=== PATIENT | female | born 1945 | race Caucasian/White ===

== ENCOUNTER 2018-04-21 19:20 | Inpatient (IN) ==
--- NOTE | 2018-04-21 19:25 | Emergency Department Note ---
Disposition Clinical Impression: Confusion Dementia Qualifiers: Dementia type: unspecified type Dementia behavioral disturbance: without behavioral disturbance Qualified Code(s): F03.90 - Unspecified dementia without behavioral disturbance Urinary tract infection Qualifiers: Urinary tract infection type: acute cystitis Hematuria presence: with hematuria Qualified Code(s): N30.01 - Acute cystitis with hematuria Disposition: Admitted As Inpatient Condition: Good Referrals: Gege Almaraz, [employer] [Advanced Practice Nurse] - Forms: ED Satisfaction Letter, Work/School Release General Adult HPI - General Chief complaint: ED General Medical Stated complaint: General Medical Time Seen by Provider: 04/21/18 19:22 Source: patient, EMS Mode of arrival: EMS Limitations: no limitations, age Nursing Notes Reviewed: Yes Vital Signs Reviewed: Yes - History of Present Illness HPI Narrative: Patient arrives by EMS with report port of having an anxiety or panic attack. Patient states she has those but she feels somewhat better now. She also feels somewhat better or getting out of of the home she was in because she reports a lot of cigarette smoke in the house. She has had medication for anxiety but she is reportedly out of it. Her daughter talked to the EMS outside and advised that the patient has been living with them since October and the cannot manage her care any more. Patient therefore "packed her bags for a few days". The patient denies any type of headache or visual changes. She denies visual or auditory hallucination. She denies chest pain or shortness breath or abdominal pain. She states she did feel congested somewhat short of breath with the cigarette smoke in the house. She denies abdominal pain, nausea, vomiting or diarrhea. She denies a urinary troubles but volunteers "I wear attends". She denies any extremity swelling or joint pains. She has not had recent fall or injury. She indicates she is feeling well at her time of arrival. It was reported by EMS that she would usually get around with a walker but she has not had one available since October because "it is in storage ". EMS did perform an Accu-Chek of 104 as her vital signs were stable with a blood pressure 130/80. The patient was cooperative for transport and on arrival to this emergency department. - Related Data Home Medications Medication Instructions Recorded Confirmed Aspirin [Adult Aspirin] 81 mg PO DAILY 04/21/18 04/21/18 Atorvastatin [Lipitor] 40 mg PO HS 04/21/18 04/21/18 Cyanocobalamin (Vitamin B-12) 2,500 mcg SL DAILY 04/21/18 04/21/18 [B-12] Donepezil HCl [Aricept] 5 mg PO HS 04/21/18 04/21/18 Metoprolol Tartrate [Lopressor] 25 mg PO DAILY 04/21/18 04/21/18 Omeprazole [PriLOSEC] 20 mg PO DAILY 04/21/18 04/21/18 Allergies Allergy/AdvReac Type Severity Reaction Status Date / Time No Known Allergies Allergy Verified 04/21/18 19:31 All systems ED: reviewed and negative except as stated. Past Medical History - Past Medical History Attestation: Yes The following information was validated with the patient. Source: patient, old records reviewed, nursing notes reviewed Medical history: Reports: diabetes (2), hyperlipidemia, hypertension, kidney stones, other (Alzheimer's) Surgical history: Reports: other (Partial right lung resection, benign tumor, nephrectomy, kidney stone extraction, colonoscopy) Psychiatric history: Reports: anxiety, panic disorder - Social History Smoking Status: Former smoker Alcohol use: Reports: none Drug use: Reports: none Physical Exam - General Limitations: no limitations, age General appearance: alert, in no apparent distress, anxious - Head Head exam: atraumatic, normocephalic, normal inspection - Eye Eye exam: Present: normal appearance, PERRL, EOMI. Absent: conjunctival injection - ENT ENT exam: normal exam, normal oropharynx, mucous membranes moist - Neck Neck exam: Present: normal inspection, full ROM, trachea midline - Chest Chest inspection: Present: normal inspection, symmetric chest wall rise - Respiratory Respiratory exam: Present: normal lung sounds bilaterally. Absent: respiratory distress, wheezes, prolonged expiratory phase - Cardiovascular Cardiovascular exam: Present: regular rate, normal rhythm, normal heart sounds. Absent: tachycardia - Abdominal Exam Abdominal exam: Present: soft, Non-Tender, normal bowel sounds. Absent: tenderness, distention, guarding, rebound, rigidity - Extremities Exam Extremities exam: Present: normal inspection, full ROM, normal capillary refill. Absent: tenderness, pedal edema, calf tenderness - Expanded Lower Extremity Exam Neurovascular/Tendon exam: Present: normal capillary refill. Absent: motor deficit, sensory deficit, tendon deficit Gait: not tested/not observed - Back Exam Back exam: Present: normal inspection, full ROM. Absent: tenderness, CVA tenderness (R), CVA tenderness (L), vertebral tenderness - Neurological Exam Neurological exam: Present: alert, CN II-XII intact. Absent: oriented X3 ( Oriented to person and place.), motor sensory deficit - Psychiatric Psychiatric exam: Present: normal affect, normal mood - Skin Skin exam: Present: warm, dry, intact, normal color. Absent: diaphoresis, pallor Course Course Narrative: Care has been discussed with Dr. Diaz. He is agreeable with observation is patient for continuous or treatment for UTI as well as evaluating the social situation. She will likely need placement to a detention. Verbal orders have been obtained for her observation period Vital Signs Temperature 99.1 F 04/21/18 19:22 Pulse Rate 69 04/21/18 19:22 Respiratory Rate 16 04/21/18 19:22 Blood Pressure 160/86 04/21/18 19:22 O2 Sat by Pulse Oximetry 98 04/21/18 19:22 Temperature 99.1 F 04/21/18 19:22 Pulse Rate 69 04/21/18 19:22 Respiratory Rate 16 04/21/18 19:22 Blood Pressure 160/86 04/21/18 19:22 O2 Sat by Pulse Oximetry 98 04/21/18 19:22 Oxygen Delivery Oxygen Delivery Room Air Medical Decision Making - Medical Records Medical records reviewed: Yes I reviewed the patient's medical records. - Lab Data Lab results reviewed: Yes I reviewed the patient's lab results. Result diagrams: 04/21/18 19:36 04/21/18 19:36 Lab Results 04/21/18 04/21/18 04/21/18 Range/Units 19:36 19:36 19:49 WBC 4.9 (4.3-11.1) K/mcL RBC 4.15 (3.82-4.97) M/mcL Hgb 12.5 (11.5-15.4) g/dL Hct 36.4 (35.3-44.9) % MCV 87.7 (83.0-100.0) fL MCH 30.1 (28.0-33.3) pg MCHC 34.3 (31.6-35.5) g/dL RDW 13.1 (11.5-14.5) % Plt Count 216 (140-400) K/mcL MPV 9.5 (9.4-12.4) fL Immature Gran % 0.4 (0-4) % Seg Neutrophils % 59.3 % Lymphocytes % 29.8 % Monocytes % 7.4 % Eosinophils % 2.7 % Basophils % 0.4 % Neutrophils # 2.9 (1.6-8.9) K/mcL Lymphocytes # 1.5 (0.6-4.6) K/mcL Monocytes # 0.4 (0.0-1.3) K/mcL Eosinophils # 0.1 (0.0-0.6) K/mcL Basophils # 0.0 (0.0-0.2) K/mcL Sodium 138 (136-145) mEq/L Potassium 4.0 (3.5-5.1) mEq/L Chloride 107 (98-107) mEq/L Carbon Dioxide 25 (23-29) mEq/L BUN 10 (8-23) mg/dL Creatinine 0.76 (0.60-1.20) mg/dL Est GFR ( Amer) > 60 (> 60) Est GFR (Non-Af Amer) > 60 (> 60) BUN/Creatinine Ratio 13 (6-26) Glucose 99 (70-105) mg/dL Calculated Osmolality 285 (280-300) Calcium 12.2 H (8.6-10.3) mg/dL Total Bilirubin 0.6 (0.3-1.0) mg/dL Direct Bilirubin 0.2 (0.0-0.2) mg/dL Indirect Bilirubin 0.4 (0.0-1.2) mg/dL AST 15 (13-39) Units/L ALT 11 (7-52) Units/L Alkaline Phosphatase 53 (34-104) Units/L Serum Total Protein 6.7 (6.4-8.9) g/dL Albumin 3.9 (3.5-5.7) g/dL Globulin 2.8 (2.4-3.5) g/dL Albumin/Globulin Ratio 1.4 (1.1-2.2) Urine Color Light Yellow (Yellow) Urine Clarity Clear (Clear) Urine pH 8.5 H (5.0-8.0) pH Units Ur Specific Lando 1.010 (1.010-1.025) Urine Protein Negative (Neg-Trace) mg/dL Urine Glucose (UA) Normal (Normal) mg/dL Urine Ketones Negative (Negative) mg/dL Urine Blood TRACE-INTACT H (Negative) Urine Nitrite Negative (Negative) Urine Bilirubin Negative (Negative) Urine Urobilinogen Normal (Normal) mg/dL Ur Leukocyte Esterase Trace H (Negative) Urine Microscopic RBC 50-100 H (0-3) per hpf Urine Microscopic WBC 5-15 H (0-3) per hpf Ur Squamous Epith Cells Few (None-Few) per lpf Calcium Oxalate Crystal Present Ur Culture Indicated? YES A (NO)
[2018-04-21 19:45] LABS: Basophils % 0.4 %; Eosinophils # 0.1 K/mcL (0.0-0.6); Eosinophils % 2.7 %; Hematocrit 36.4 % (35.3-44.9); Hemoglobin 12.5 g/dL (11.5-15.4); Immature Granulocytes % 0.4 % (0-4); Lymphocytes # 1.5 K/mcL (0.6-4.6); Lymphocytes % 29.8 %; Mean Corpuscular HGB Conc 34.3 g/dL (31.6-35.5); Mean Corpuscular Hemoglobin 30.1 pg (28.0-33.3); Mean Corpuscular Volume 87.7 fL (83.0-100.0); Mean Platelet Volume 9.5 fL (9.4-12.4); Monocytes # 0.4 K/mcL (0.0-1.3); Monocytes % 7.4 %; Neutrophils # 2.9 K/mcL (1.6-8.9); Platelet Count 216 K/mcL (140-400); Red Blood Count 4.15 M/mcL (3.82-4.97); Red Cell Distribution Width 13.1 % (11.5-14.5); Segmented Neutrophils % 59.3 %
[2018-04-21 20:04] LABS: Alanine Aminotransferase 11 Units/L (7-52); Albumin 3.9 g/dL (3.5-5.7); Albumin/Globulin Ratio 1.4 (1.1-2.2); Alkaline Phosphatase 53 Units/L (34-104); Aspartate Amino Transferase 15 Units/L (13-39); BUN/Creatinine Ratio 13 (6-26); Bilirubin,Direct 0.2 mg/dL (0.0-0.2); Bilirubin,Indirect 0.4 mg/dL (0.0-1.2); Bilirubin,Total 0.6 mg/dL (0.3-1.0); Blood Urea Nitrogen 10 mg/dL (8-23); Calcium 12.2 mg/dL (8.6-10.3); Carbon Dioxide 25 mEq/L (23-29); Chloride 107 mEq/L (98-107); Globulin 2.8 g/dL (2.4-3.5); Glucose 99 mg/dL (70-105); Osmolality,Calculated 285 (280-300); Sodium 138 mEq/L (136-145); Total Protein 6.7 g/dL (6.4-8.9); eGFR For African Americans > 60 (> 60); eGFR For Non-African Americans > 60 (> 60)
[2018-04-21 20:14] LABS: Color,Urine Light Yellow (Yellow)
[2018-04-21 20:15] LABS: Bilirubin,Urine Negative (Negative); Blood,Urine TRACE-INTACT (Negative); Clarity,Urine Clear (Clear); Glucose,Urine (UA) Normal (Normal); Ketones,Urine Negative (Negative); PH,Urine 8.5 pH Units (5.0-8.0)
[2018-04-21 20:16] LABS: Leukocyte Esterase,Urine Trace (Negative); Nitrite,Urine Negative (Negative); Protein,Urine Negative (Neg-Trace); Urobilinogen,Urine Normal (Normal)
[2018-04-21 20:17] LABS: Calcium Oxalate Crystals,Urine Present; RBC,Urine 50-100 per hpf (0-3); Squamous Epithelial Cell,Urine Few per lpf (None-Few)
[2018-04-21] MEDS ORDERED: cefTRIAXone 2,000 MG in 0.9 % Sodium Chloride Mini Bag 100 ML IVPB ONE (20:32)
[2018-04-21] MEDS ORDERED: 0.9 % Sodium Chloride 1,000 ML IVC SCH ×2 (20:45→22:48)
[2018-04-21] MEDS ORDERED: Dextrose Gel 15 GM/37.5 ML TUBE PO PRN ×2 (22:48)
[2018-04-21] MEDS ORDERED: Naloxone 0.4 MG/ML INJ IVP PRN (22:48)
[2018-04-21] MEDS ORDERED: D5% in Water 1,000 ML IVC PRN (22:48)
[2018-04-21] MEDS ORDERED: *HR* Dextrose 50 % in Water (Syg) 50 ML SYRINGE IVP PRN (22:48)
[2018-04-22] MEDS: Cyanocobalamin (B-12) 1,000 MCG TABLET PO SCH (08:44)
[2018-04-22] MEDS: cefTRIAXone 2,000 MG in 0.9 % Sodium Chloride Mini Bag 100 ML IVPB SCH (08:45)
[2018-04-22] MEDS: Aspirin Enteric Coated 81 MG Tablet PO SCH (08:45)
[2018-04-22] MEDS: Insulin LISPRO 300 UNITS/3 ML VIAL SQ SCH ×3 (08:46→17:09)
--- NOTE | 2018-04-22 11:33 | Internal Med History&Physical ---
Date of Encounter: 04/22/18 Time of Encounter: 10:55 Assessment and Plan (1) Hematuria Current visit: Yes Status: Acute We will order CT of abdomen and chest to further evaluate. Qualifiers: Hematuria type: unspecified type Qualified Code(s): R31.9 - Hematuria, unspecified (2) Hypercalcemia Current visit: Yes Status: Acute Will order PTH and CT of chest and abdomen to further evaluate. (3) DM type 2 (diabetes mellitus, type 2) Current visit: Yes Status: Chronic Will check hemoglobin A1c in a.m. Qualifiers: Diabetes mellitus chcf insulin use: without chcf use Diabetes mellitus complication status: without complication Qualified Code(s): E11.9 - Type 2 diabetes mellitus without complications (4) Hypertension Current visit: Yes Status: Chronic Continue Lopressor and monitor labs. Qualifiers: Hypertension type: essential hypertension Qualified Code(s): I10 - Essential (primary) hypertension (5) Anxiety and depression Current visit: Yes Status: Acute We will monitor without medication at this time. (6) GERD (gastroesophageal reflux disease) Current visit: Yes Status: Chronic Continue omeprazole. Qualifiers: Esophagitis presence: esophagitis presence not specified Qualified Code(s) : K21.9 - Gastro-esophageal reflux disease without esophagitis (7) Dementia Current visit: Yes Status: Chronic Presumed since on Aricept. Will order MMSE. Qualifiers: Dementia type: unspecified type Dementia behavioral disturbance: without behavioral disturbance Qualified Code(s): F03.90 - Unspecified dementia without behavioral disturbance (8) B12 deficiency Current visit: Yes Status: Acute Will order B12 level in a.m. Internal Medicine - H&P: HPI Chief complaint: Anxiety, weakness Admitted From: Emergency Dept Plans for Post Hospital Care: Home History of present illness: Ms. Ibarra is a 73 year old female who came to emergency room stating she felt she was having a panic attack at home. She is a challenging historian because of rambling conversation but seems to indicate that she was having a disagreement and/or frustration with her daughter whom she has lived with since October 2017. The squad was called and she was brought to emergency room and evaluated. She was found to have hematuria and hypercalcemia. She was admitted to [facility] floor for ongoing care needs. She denies significant pain or dyspnea at this time. She states she cannot go back and live with her daughter but does not specify details. Past Med Surg Social Fam HX - Past Medical History Medical history: diabetes, hyperlipidemia, hypertension, kidney stones, other Additional medical history: Alzheimers Psychiatric history: anxiety, panic disorder - Past Surgical History Surgical History: other Additional surgical history: Lung surgery, kidney removed - Social History Smoking Status: Former smoker Smokeless Tobacco Status: No Alcohol use: none Drug use: none Internal Medicine - H&P: Meds Aspirin [Adult Aspirin] 81 mg PO DAILY 04/21/18 [History] Atorvastatin [Lipitor] 40 mg PO HS 04/21/18 [History] Cyanocobalamin (Vitamin B-12) [B-12] 2,500 mcg SL DAILY 04/21/18 [History] Donepezil HCl [Aricept] 5 mg PO HS 04/21/18 [History] Metoprolol Tartrate [Lopressor] 25 mg PO DAILY 04/21/18 [History] Omeprazole [PriLOSEC] 20 mg PO DAILY 04/21/18 [History] 3 Allergy/AdvReac Type Severity Reaction Status Date / Time No Known Allergies Allergy Verified 04/21/18 19:31 All Systems PM: A 10-system review of systems was performed and is negative for pertinent findings except as documented above in the HPI. Review of systems: Gen.: She states her present weight is 112 although the measured weight on admission was approximately 150 pounds. She states her weight has been stable the past year. Cardiovascular: She has history of hypertension but denies MO heart failure angina DVT or pulmonary embolus. She reports feeling her heart beat rapidly when she is having anxiety Respiratory: She smoked for approximately age 9-35 up to 2-1/2 packs per day. She denies chronic lung disease and does not use home oxygen. She reports that [open ?] lung biopsy was done over 10 years ago in [place] to remove what was felt to be malignancy. She denies malignancy was actually found. GI: She denies disorders of her liver gallbladder or exocrine pancreas. She has GERD : She has had kidney stones in the past. She reports a right nephrectomy was done over 10 years ago but cannot clearly state the reason for this. She denies other kidney or bladder disorders Neurologic: She is on Aricept but was uncertain why she takes it. She is uncertain if she has had a stroke. She denies seizures. Endocrine: She reports being diagnosed with DM 2 approximately 20 years ago but does not take medication. She denies thyroid disease but has hyperlipidemia Hematology/oncology: She has been told she was B12 deficient and is on supplemental B12. She had left breast lumpectomy without malignancy found several years ago. She denies anemia or internal malignancies otherwise Psychiatric: She has anxiety and depression [place] skeletal: She has DJD but denies gout or other bone joint or muscle disorders. - Constitutional Vitals: Temp Pulse Resp BP Pulse Ox 97.7 F 59 14 126/62 95 04/22/18 10:59 04/22/18 10:59 04/22/18 10:59 04/22/18 10:59 04/22/18 10:59 Exam: Gen.: She is a well-developed well-nourished female resting comfortably in bed who appears in no acute distress HEENT: Head is atraumatic and normocephalic. Eyes: EOMI. There is no scleral icterus. Mouth: Mucosa is moist. Neck: Supple and nontender. There is no thyromegaly or adenopathy noted. Heart: Regular without murmurs gallops or ectopics Lungs: No wheezes or crackles are heard. Abdomen: Soft and nontender. No masses or guarding are noted. Extremities: There is no cyanosis edema or clubbing noted. Dorsalis pedis and posterior tibial pulses are trace to 1+ palpable bilaterally. She has minimal DJD changes of her hands. Neurologic: Mental status: She is talkative and seems to be a reliable historian. She is somewhat rambling in conversation at times. Cranial nerves: Smile is symmetric. Forehead wrinkles bilaterally. Tongue protrudes midline. EOMI. Motor: There is no pronator drift. There is no cogwheeling or rigidity on passive range of motion. She has a rhythmic tremor of her jaw at rest. Cerebellar: Finger to nose is intact bilaterally. Skin: Warm and dry Internal Med - H&P Results - Labs CBC & Chem 7: 04/21/18 19:36 04/21/18 19:36
[2018-04-23] MEDS ORDERED: *HR* Enoxaparin 40 MG/0.4 ML SYRINGE SQ SCH (06:00)
[2018-04-23] MEDS: Cyanocobalamin (B-12) 1,000 MCG TABLET PO SCH (07:59)
[2018-04-23] MEDS: Aspirin Enteric Coated 81 MG Tablet PO SCH (08:00)
[2018-04-23] MEDS: cefTRIAXone 2,000 MG in 0.9 % Sodium Chloride Mini Bag 100 ML IVPB SCH (08:01)
[2018-04-23] MEDS: Insulin LISPRO 300 UNITS/3 ML VIAL SQ SCH (08:18)
[2018-04-23 09:11] VITALS: BP 134/81
[2018-04-23] MEDS ORDERED: ALPRAZolam 0.25 MG TABLET PO PRN (10:20)
--- NOTE | 2018-04-23 10:21 | Discharge Summary ---
Date of Encounter: 04/23/18 Time of Encounter: 10:10 - Discharge Diagnosis (1) Mass of upper lobe of right lung Priority: Primary Status: Acute (2) Hypercalcemia Priority: Secondary Status: Acute (3) Hematuria Priority: Secondary Status: Acute Qualifiers: Hematuria type: unspecified type Qualified Code(s): R31.9 - Hematuria, unspecified (4) DM type 2 (diabetes mellitus, type 2) Priority: Secondary Status: Chronic Qualifiers: Diabetes mellitus oil heaterman insulin use: without oil heaterman use Diabetes mellitus complication status: without complication Qualified Code(s): E11.9 - Type 2 diabetes mellitus without complications (5) Hypertension Priority: Secondary Status: Chronic Qualifiers: Hypertension type: essential hypertension Qualified Code(s): I10 - Essential (primary) hypertension (6) Anxiety and depression Priority: Secondary Status: Chronic (7) GERD (gastroesophageal reflux disease) Priority: Secondary Status: Chronic Qualifiers: Esophagitis presence: esophagitis presence not specified Qualified Code(s) : K21.9 - Gastro-esophageal reflux disease without esophagitis (8) Dementia Priority: Secondary Status: Chronic Qualifiers: Dementia type: unspecified type Dementia behavioral disturbance: without behavioral disturbance Qualified Code(s): F03.90 - Unspecified dementia without behavioral disturbance (9) B12 deficiency Priority: Secondary Status: Chronic Hospital course: Ms. Ibarra is a 73 year old female who came to emergency room stating she felt she was having a panic attack at home. She is a challenging historian because of rambling conversation but seems to indicate that she was having a disagreement and/or frustration with her daughter whom she has lived with since October 2017. The squad was called and she was brought to emergency room and evaluated. She was found to have hematuria and hypercalcemia. She was admitted to [facility] for ongoing care needs. Initial orders were written by the emergency room physician. I saw her on April 22 and performed the history and physical. CT of chest abdomen pelvis was done to further evaluate hypercalcemia with history of lung mass. The chest CT showed a 2 cm lobular lesion in the right apex having the appearance of bronchogenic carcinoma. There was an indeterminate sub-6 mm right lower lobe subpleural pulmonary nodule. I discussed with her the findings of the CT scan. She wished to be transferred to [facility] for further workup and treatment. - Time Spent with Patient Total time spent providing and/or coordinating discharge services: - Discharge Medications Home Medications: Aspirin [Adult Aspirin] 81 mg PO DAILY 04/21/18 [History] Atorvastatin [Lipitor] 40 mg PO HS 04/21/18 [History] Cyanocobalamin (Vitamin B-12) [B-12] 2,500 mcg SL DAILY 04/21/18 [History] Donepezil HCl [Aricept] 5 mg PO HS 04/21/18 [History] Metoprolol Tartrate [Lopressor] 25 mg PO DAILY 04/21/18 [History] Omeprazole [PriLOSEC] 20 mg PO DAILY 04/21/18 [History] Allergies/Adverse Reactions: 3 Allergy/AdvReac Type Severity Reaction Status Date / Time No Known Allergies Allergy Verified 04/21/18 19:31 Date of admission: 04/22/18 18:32 Primary care physician: Gege Almaraz DOUGH [employer]ER - Constitutional Vitals: Temp Pulse Resp BP Pulse Ox 98.6 F 75 16 134/81 97 04/23/18 09:08 04/23/18 09:08 04/23/18 09:08 04/23/18 09:08 04/23/18 09:08 - Patient Status Disposition: Transfer Other Condition: Good - Discharge Instructions
[2018-04-23 11:21] LABS: Estimated Average Glucose 114 mg/dl; Hemoglobin A1C 5.6 %
== END 2018-04-23 13:25 | disposition other institution (70) | DRG 690 ==
LOC: EMEROOPIK 19:20 → INPPIK 19:20
PROVIDERS: ADMIT Internal Medicine; ATTEND Internal Medicine

== ENCOUNTER 2019-05-11 08:52 | Observation (INO) ==
[2019-05-11] MEDS ORDERED: 0.9 % Sodium Chloride 1,000 ML IVC ONE (09:00)
--- NOTE | 2019-05-11 09:00 | Emergency Department Note ---
Disposition Clinical Impression: Dehydration, Pancytopenia, DESIRAE (acute kidney injury), UTI (urinary tract infection), Hypokalemia, Hypomagnesemia Disposition: Admitted As Inpatient Condition: Good Referrals: Gege Almaraz CNP [Primary Care Provider] - Forms: ED Satisfaction Letter Time of Disposition: : Nausea/Vomiting/Diarrhea HPI - General Chief complaint: ED Nausea/Vomiting/Diarrhea Stated complaint: Diarrhea & weakness few days Time Seen by Provider: 05/11/19 08:58 Source: patient, EMS Mode of arrival: EMS Limitations: no limitations Nursing Notes Reviewed: Yes Vital Signs Reviewed: Yes - History of Present Illness HPI Narrative: 74-year-old female who presents today with weakness with gotten worse and last couple of days. She states she had diarrhea earlier in the week. They prescribed her some medicine but she did not take it. She states her last bout of diarrhea was 3 days ago. She is not having any pain at this time. The caregiver who arrives with her states that she is stopped eating over the last couple of weeks and they have noticed that really she had a decline in weight since that time. They did not know that she was given a call the ambulance they did not anticipate that but that she was notified afterwards that she is are not he called the ambulance for weakness. Patient expresses some distress satisfaction with the current nursing situation at her house. She does not feel comfortable there and she does not like her nurses and she has fired most of them. She has nursing support once a week now. She does get Meals on Wheels according to the social psychologist but there is no went to make sure that she does eat and they feel that she probably is a eating. She had lung cancer approxi mately one year ago. Patient reports she only has one kidney. Pt Subjective Complaint: diarrhea Onset (ago): day(s) (3) - Related Data Home Medications Medication Instructions Recorded Confirmed Cyanocobalamin (Vitamin B-12) 50,000 mcg SL QWEEK 04/21/18 05/11/19 [B-12] Donepezil HCl [Aricept] 5 mg PO HS 04/21/18 05/11/19 Ondansetron ODT [Zofran ODT] 4 mg SL Q6H PRN 05/08/18 05/11/19 ARIPiprazole [Abilify] 5 mg PO DAILY 02/26/19 05/11/19 Aspirin Enteric Coated [Aspirin EC] 81 mg PO DAILY 02/26/19 05/11/19 Atorvastatin Calcium [Lipitor] 20 mg PO DAILY 02/26/19 05/11/19 Cinacalcet [Sensipar] 30 mg PO BID 02/26/19 05/11/19 Ergocalciferol (VITAMIN D2) 50,000 unit PO QWEEK 02/26/19 05/11/19 [Vitamin D2] Metoprolol [Lopressor] 25 mg PO DAILY 02/26/19 05/11/19 Montelukast [Singulair] 10 mg PO DAILY 02/26/19 05/11/19 Nitroglycerin [Nitrostat] 0.4 mg SL AD PRN 02/26/19 05/11/19 clonazePAM [Clonazepam] 2 mg PO QPM 02/26/19 05/11/19 clonazePAM [Klonopin] 1 mg PO QAM 02/26/19 05/11/19 Previous Rx's Medication Instructions Recorded Sennosides/Docusate Sodium [Senna 2 each PO BID PRN #60 tablet 05/13/18 Plus] Omeprazole [PriLOSEC] 20 mg PO BID #60 capsule. 03/01/19 Sucralfate [Carafate] 1 gm PO QIDAC #120 tablet 03/01/19 Allergies Allergy/AdvReac Type Severity Reaction Status Date / Time No Known Allergies Allergy Verified 02/26/19 22:50 Review of Systems: All other systems are negative except as noted/marked Chart generated with voice recognition software Nursing notes reviewed Old records reviewed Past Medical History - Past Medical History Attestation: Yes The following information was validated with the patient. Source: patient, old records reviewed, nursing notes reviewed, other (social psychologist) Medical history: Reports: diabetes, hyperlipidemia, hypertension, kidney stones, other Surgical history: Reports: other Psychiatric history: Reports: anxiety, panic disorder - Social History Smoking Status: Former smoker Smokeless Tobacco Status: No Alcohol use: Reports: none Drug use: Reports: none Physical Exam General: NAD, VSS central tremor cachectic Head: normocephalic, atraumatic Eyes: EOMI, PERRLA mouth: Dry mucous membranes Neck: NO CLA, Supple Chest wall: normal rise, no crepitus, no deformity noted Lungs: moving air well, no distress Heart: RRR, no murmur Abd: soft, nontender, BS normal : deferred MSK: strength equal in all four extremities Ext: moves all four extremities, no obvious deformities Skin: cap refill normal, warm, dry neuro : CN2-12 grossly intact, A&Ox3 Psych: normal affect, not anxious Course Vital Signs Temperature 98.3 F 05/11/19 08:54 Pulse Rate 84 05/11/19 08:54 Respiratory Rate 16 05/11/19 08:54 Blood Pressure 111/70 05/11/19 08:54 O2 Sat by Pulse Oximetry 96 05/11/19 08:54 Temperature 98.3 F 05/11/19 08:54 Pulse Rate 83 05/11/19 10:01 Respiratory Rate 16 05/11/19 10:01 Blood Pressure 124/60 05/11/19 10:01 O2 Sat by Pulse Oximetry 97 05/11/19 10:01 Oxygen Delivery Oxygen Delivery Room Air Nausea/Vomiting/Diarrhea - [facility] Narrative Medical decision making narrative: 74 yo F who presents today with generalized weakness for couple of days. She has a urinary tract infection and acute kidney injury. She will has one kidney so slight bump in her creatinine is worrisome. I started on IV fluids started I ordered a Rocephin push for her. Her potassium magnesium are low as well I have ordered replacement for those. She is slightly pancytopenic although it is mild for this would need to be followed. It appears that she is probably been anemic for a while and she has had a low white count for a while. Patient is comfortable staying in the hospital at this time. She has had no distress that she has been here. She is very orthostatic on arrival is an ear. After she has been hydrated. Her boluses going and somewhat slowly think secondary to positioning of the IV and her not keeping her arm straight. She has no questions when I discussed the fact that she would not stay in the hospital. She is worried about disposition planning as she does not feel very comfortable going home at this point. I told her to dress this with the admitting physician and the social media manager team. - Medical Records Medical records reviewed: Yes I reviewed the patient's medical records. - Lab Data Lab results reviewed: Yes I reviewed the patient's lab results. Result diagrams: 05/11/19 09:09 05/11/19 09:09 Lab Results 05/11/19 05/11/19 05/11/19 Range/Units 09:09 09:09 09:09 WBC 3.2 L (4.3-11.1) K/mcL RBC 3.76 L (3.82-4.97) M/mcL Hgb 11.2 L (11.5-15.4) g/dL Hct 33.3 L (35.3-44.9) % MCV 88.6 (83.0-100.0) fL MCH 29.8 (28.0-33.3) pg MCHC 33.6 (31.6-35.5) g/dL RDW 12.6 (11.5-14.5) % Plt Count 125 L (140-400) K/mcL MPV 9.6 (9.4-12.4) fL Immature Gran % 0.3 (0-4) % Seg Neutrophils % 75.2 % Lymphocytes % 15.4 % Monocytes % 7.5 % Eosinophils % 1.3 % Basophils % 0.3 % Neutrophils # 2.4 (1.6-8.9) K/mcL Lymphocytes # 0.5 L (0.6-4.6) K/mcL Monocytes # 0.2 (0.0-1.3) K/mcL Eosinophils # 0.0 (0.0-0.6) K/mcL Basophils # 0.0 (0.0-0.2) K/mcL PT 12.1 (9.4-12.1) Seconds INR 1.1 Sodium 144 (136-145) mEq/L Potassium 3.2 L (3.5-5.1) mEq/L Chloride 106 (98-107) mEq/L Carbon Dioxide 29 (23-29) mEq/L BUN 13 (8-23) mg/dL Creatinine 1.23 H (0.60-1.20) mg/dL Est GFR ( Amer) 51 L (> 60) Est GFR (Non-Af Amer) 42 L (> 60) BUN/Creatinine Ratio 11 (6-26) Glucose 111 H (70-105) mg/dL Calculated Osmolality 299 (280-300) Calcium 11.4 H (8.6-10.3) mg/dL Magnesium 1.3 L (1.6-2.6) mg/dL Total Bilirubin 0.4 (0.3-1.0) mg/dL AST 14 (13-39) Units/L ALT 6 L (7-52) Units/L Alkaline Phosphatase 42 (34-104) Units/L Creatine Kinase 18 L (30-223) Units/L Troponin I < 0.03 (< 0.04) ng/mL Serum Total Protein 6.1 L (6.4-8.9) g/dL Albumin 3.9 (3.5-5.7) g/dL Globulin 2.2 L (2.4-3.5) g/dL Albumin/Globulin Ratio 1.8 (1.1-2.2) TSH 1.209 (0.340-5.600) mcIU/mL Urine Color (Yellow) Urine Clarity (Clear) Urine pH (5.0-8.0) pH Units Ur Specific [place] (1.010-1.025) Urine Protein (Neg-Trace) mg/dL Urine Glucose (UA) (Normal) mg/dL Urine Ketones (Negative) mg/dL Urine Blood (Negative) Urine Nitrite (Negative) Urine Bilirubin (Negative) Urine Urobilinogen (Normal) mg/dL Ur Leukocyte Esterase (Negative) 05/11/19 Range/Units 09:58 WBC (4.3-11.1) K/mcL RBC (3.82-4.97) M/mcL Hgb (11.5-15.4) g/dL Hct (35.3-44.9) % MCV (83.0-100.0) fL MCH (28.0-33.3) pg MCHC (31.6-35.5) g/dL RDW (11.5-14.5) % Plt Count (140-400) K/mcL MPV (9.4-12.4) fL Immature Gran % (0-4) % Seg Neutrophils % % Lymphocytes % % Monocytes % % Eosinophils % % Basophils % % Neutrophils # (1.6-8.9) K/mcL Lymphocytes # (0.6-4.6) K/mcL Monocytes # (0.0-1.3) K/mcL Eosinophils # (0.0-0.6) K/mcL Basophils # (0.0-0.2) K/mcL PT (9.4-12.1) Seconds INR Sodium (136-145) mEq/L Potassium (3.5-5.1) mEq/L Chloride (98-107) mEq/L Carbon Dioxide (23-29) mEq/L BUN (8-23) mg/dL Creatinine (0.60-1.20) mg/dL Est GFR ( Amer) (> 60) Est GFR (Non-Af Amer) (> 60) BUN/Creatinine Ratio (6-26) Glucose (70-105) mg/dL Calculated Osmolality (280-300) Calcium (8.6-10.3) mg/dL Magnesium (1.6-2.6) mg/dL Total Bilirubin (0.3-1.0) mg/dL AST (13-39) Units/L ALT (7-52) Units/L Alkaline Phosphatase (34-104) Units/L Creatine Kinase (30-223) Units/L Troponin I (< 0.04) ng/mL Serum Total Protein (6.4-8.9) g/dL Albumin (3.5-5.7) g/dL Globulin (2.4-3.5) g/dL Albumin/Globulin Ratio (1.1-2.2) TSH (0.340-5.600) mcIU/mL Urine Color Yellow (Yellow) Urine Clarity Slightly Cloudy A (Clear) Urine pH 6.5 (5.0-8.0) pH Units Ur Specific [place] 1.020 (1.010-1.025) Urine Protein Trace (Neg-Trace) mg/dL Urine Glucose (UA) Normal (Normal) mg/dL Urine Ketones 40 H (Negative) mg/dL Urine Blood Trace-lysed H (Negative) Urine Nitrite Negative (Negative) Urine Bilirubin Small H (Negative) Urine Urobilinogen Normal (Normal) mg/dL Ur Leukocyte Esterase Small H (Negative) - Radiology Data Radiology results reviewed: Yes I reviewed the patient's radiology results. EXAMINATION: CT OF THE HEAD WITHOUT CONTRAST 05/11/2019 9:34 am TECHNIQUE: CT of the head was performed without the administration of intravenous contrast. Dose modulation, iterative reconstruction, and/or weight based adjustment of the mA/kV was utilized to reduce the radiation dose to as low as reasonably achievable. COMPARISON: None. HISTORY: ORDERING SYSTEM PROVIDED HISTORY: weakness Weakness and diarrhea today. Acute symptoms. History of Alzheimer's disease. Initial examination. FINDINGS: BRAIN/VENTRICLES: There is no acute intracranial hemorrhage, mass effect or midline shift. No abnormal extra-axial fluid collection. The dacosta-white differentiation is maintained without evidence of an acute infarct. There is no evidence of hydrocephalus. There is generalized cerebral atrophy. Mild low-attenuation changes in the periventricular white matter are compatible with chronic microvascular ischemic related gliosis. There is an old tiny right frontal lobe infarct. ORBITS: The visualized portion of the orbits demonstrate no acute abnormality. SINUSES: The visualized paranasal sinuses and mastoid air cells demonstrate no acute abnormality. SOFT TISSUES/SKULL: No acute abnormality of the visualized skull or soft tissues. CT/CT head/brain wo con IMPRESSION: No acute intracranial abnormality. D/ / Jose Nelson MD / Jose Nelson MD Interpreting Provider: Jose Nelson MD N: ONE XRAY VIEW OF THE CHEST 05/11/2019 9:34 am COMPARISON: 02/26/2019, 04/22/2018 HISTORY: ORDERING SYSTEM PROVIDED HISTORY: weakness, hx of lung ca FINDINGS: Emphysematous changes. Trace pleural effusions are suspected. Ill-defined nodular densities along the left apex. Heart size is within normal limits. Aortic atherosclerosis. XR/XR chest 1V portable IMPRESSION: 1. Suspected trace bilateral pleural effusions. 2. Ill-defined nodular densities along the right apex are stable from the most recent prior exam. D/ / Domingo May MD / Domingo May MD Interpreting Provider: Domingo May MD - EKG Data EKG attestation: Yes I reviewed and interpreted this EKG. EKG results narrative: EKG interpreted by myself as sinus rhythm with rate of 80 a QTC of [address] elevation
[2019-05-11 09:17] LABS: Basophils % 0.3 %; Eosinophils % 1.3 %; Hematocrit 33.3 % (35.3-44.9); Hemoglobin 11.2 g/dL (11.5-15.4); Immature Granulocytes % 0.3 % (0-4); Lymphocytes # 0.5 K/mcL (0.6-4.6); Lymphocytes % 15.4 %; Mean Corpuscular HGB Conc 33.6 g/dL (31.6-35.5); Mean Corpuscular Hemoglobin 29.8 pg (28.0-33.3); Mean Corpuscular Volume 88.6 fL (83.0-100.0); Mean Platelet Volume 9.6 fL (9.4-12.4); Monocytes # 0.2 K/mcL (0.0-1.3); Monocytes % 7.5 %; Neutrophils # 2.4 K/mcL (1.6-8.9); Platelet Count 125 K/mcL (140-400); Red Blood Count 3.76 M/mcL (3.82-4.97); Red Cell Distribution Width 12.6 % (11.5-14.5); Segmented Neutrophils % 75.2 %; White Blood Count 3.2 K/mcL (4.3-11.1)
[2019-05-11 09:26] LABS: INR 1.1; Prothrombin Time 12.1 Seconds (9.4-12.1)
[2019-05-11 09:39] LABS: Alanine Aminotransferase 6 Units/L (7-52); Albumin 3.9 g/dL (3.5-5.7); Albumin/Globulin Ratio 1.8 (1.1-2.2); Alkaline Phosphatase 42 Units/L (34-104); Aspartate Amino Transferase 14 Units/L (13-39); BUN/Creatinine Ratio 11 (6-26); Bilirubin,Total 0.4 mg/dL (0.3-1.0); Blood Urea Nitrogen 13 mg/dL (8-23); Calcium 11.4 mg/dL (8.6-10.3); Carbon Dioxide 29 mEq/L (23-29); Chloride 106 mEq/L (98-107); Creatine Kinase 18 Units/L (30-223); Globulin 2.2 g/dL (2.4-3.5); Glucose 111 mg/dL (70-105); Magnesium 1.3 mg/dL (1.6-2.6); Osmolality,Calculated 299 (280-300); Potassium 3.2 mEq/L (3.5-5.1); Sodium 144 mEq/L (136-145); Total Protein 6.1 g/dL (6.4-8.9); Troponin I < 0.03 ng/mL (< 0.04); eGFR For African Americans 51 (> 60); eGFR For Non-African Americans 42 (> 60)
[2019-05-11 09:50] LABS: Thyroid Stimulating Hormone 1.209 mcIU/mL (0.340-5.600)
[2019-05-11 10:06] LABS: Bilirubin,Urine Small (Negative); Blood,Urine Trace-lysed (Negative); Clarity,Urine Slightly Cloudy (Clear); Color,Urine Yellow (Yellow); Glucose,Urine (UA) Normal (Normal); Ketones,Urine 40 mg/dL (Negative); Leukocyte Esterase,Urine Small (Negative); Nitrite,Urine Negative (Negative); PH,Urine 6.5 pH Units (5.0-8.0); Protein,Urine Trace mg/dL (Neg-Trace); Urobilinogen,Urine Normal (Normal)
[2019-05-11] MEDS ORDERED: cefTRIAXone 1,000 MG in Water for inj. (sterile) 10 ML IVP ONE (10:07)
[2019-05-11] MEDS ORDERED: Potassium Effervescent 25 MEQ TABLET.EFF PO ONE (10:10)
[2019-05-11 10:14] LABS: Bacteria,Urine Moderate per hpf (None-Few); Mucus,Urine Few (Few); RBC,Urine 0-3 per hpf (0-3); Squamous Epithelial Cell,Urine Many per lpf (None-Few); WBC,Urine 15-30 per hpf (0-3)
[2019-05-11] MEDS ORDERED: Ondansetron 4 MG/2 ML VIAL IVP PRN (11:18)
[2019-05-11] MEDS ORDERED: Naloxone 0.4 MG/ML INJ IVP PRN (11:18)
[2019-05-11] MEDS ORDERED: *HR* HYDROcodone/Acet 5/325 mg TABLET PO PRN (11:18)
[2019-05-11] MEDS ORDERED: Nitroglycerin 0.4 MG TAB.SUBL SL PRN (11:18)
[2019-05-11] MEDS ORDERED: Mag Hydrox/Al Hydrox/Simeth 30 ML UDC PO PRN (11:18)
[2019-05-11] MEDS ORDERED: Acetaminophen 325 MG TABLET PO PRN (11:18)
[2019-05-11] MEDS ORDERED: MOM Conc 10 ML UD.LIQ PO PRN (11:18)
[2019-05-11] MEDS: 0.9 % Sodium Chloride w KCl 20 MEQ/1,000 ML MLS IVC SCH ×2 (11:40→21:52)
[2019-05-11] MEDS: Sucralfate 1 GM TABLET PO SCH ×3 (11:56→19:53)
--- NOTE | 2019-05-11 14:16 | Electrocardiograph Report ---
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
[2019-05-11] MEDS ORDERED: clonazePAM 0.5 MG TABLET PO SCH (18:00)
--- NOTE | 2019-05-11 18:56 | Internal Med History&Physical ---
Date of Encounter: 05/11/19 Time of Encounter: 18:25 Assessment and Plan (1) Hypokalemia Current visit: Yes Status: Acute Supplemental potassium was given in emergency room. Repeat labs will be done in a.m. (2) Hypomagnesemia Current visit: Yes Status: Acute Supplemental magnesium was given in emergency room. Repeat labs will be done in a.m. (3) Dementia Current visit: No Status: Chronic Continue Aricept Qualifiers: Dementia type: unspecified type Dementia behavioral disturbance: without behavioral disturbance Qualified Code(s): F03.90 - Unspecified dementia without behavioral disturbance (4) Hypercalcemia Current visit: No Status: Acute 1,25 [place] vitamin D level was elevated at 107 on 04/13/2019. Vitamin D supplement will be discontinued. Continue Sensipar (5) DM type 2 (diabetes mellitus, type 2) Current visit: No Status: Chronic Hemoglobin A1c was 5.9% on 02/27/2019. DM 2 appears diet-controlled. Qualifiers: Diabetes mellitus halfway insulin use: without exterminator helper use Diabetes mellitus complication status: without complication Qualified Code(s): E11.9 - Type 2 diabetes mellitus without complications (6) Hypertension Current visit: No Status: Chronic Continue Lopressor Qualifiers: Hypertension type: essential hypertension Qualified Code(s): I10 - Esse ntial (primary) hypertension (7) Anxiety and depression Current visit: No Status: Chronic Continue clonazepam (8) Anemia Current visit: No Status: Chronic Anemia workup 04/13/2019 showed no factor deficiency. Qualifiers: Anemia type: iron deficiency Iron deficiency anemia type: unspecified iron deficiency Qualified Code(s): D50.9 - Iron deficiency anemia, unspecified (9) Hyperparathyroidism Current visit: No Status: Acute Continue Sensipar (10) CKD (chronic kidney disease) stage 3, GFR 30-59 ml/min Current visit: No Status: Chronic Monitor renal indices. (11) UTI (urinary tract infection) Current visit: Yes Status: Acute She was given Rocephin in emergency room. This will be continued with lactobacillus. Qualifiers: Urinary tract infection type: site unspecified Hematuria presence: with hematuria Qualified Code(s): N39.0 - Urinary tract infection, site not specified; R31.9 - Hematuria, unspecified (12) Lung cancer Current visit: Yes Status: Acute Attempt to obtain reports of most recent PET scan and chest CT will be made. Qualifiers: Laterality: right Lung location: upper lobe of lung Qualified Code(s): C34.11 - Malignant neoplasm of upper lobe, right bronchus or lung Internal Medicine - H&P: HPI Chief complaint: Weakness Admitted From: Emergency Dept Plans for Post Hospital Care: Home History of present illness: Ms. Ibarra is a 74 year old female who came to emergency room stating she had increasing weakness over the past 2-3 weeks. She reports she had 4-5 days of diarrhea that ended 1 week ago. She denies vomiting or significant abdominal pain. She felt progressively weaker so came to emergency room. She was evaluated and found to have mild pancytopenia, hypercalcemia, hypokalemia, azotemia, and hypomagnesemia. She was admitted to [facility] floor for ongoing care needs. She reports she was diagnosed with lung cancer (cell type unknown) at [facility] following transfer to [facility] after April 2018 [facility] hospitalization for right upper lobe lung mass seen on CT. She states she took 8 XRT treatments at [facility] and her most recent PET scan several weeks ago showed no residual metabolic uptake activity in the lung mass. She had left breast lumpectomy without malign lyn several years ago. She has been told in the past she was B12 deficient. She had mild pancytopenia on labs in the ER today. Past Med Surg Social Fam HX - Past Medical History Medical history: cancer, diabetes, hyperlipidemia, hypertension, kidney stones, other Additional medical history: Alzheimers, hypercalcemia, Mass in upper right lobe of lung, diverticulosis Psychiatric history: anxiety, panic disorder - Past Surgical History Surgical History: other Additional surgical history: Lung biopsy, right kidney removed, right lobectectomy of lung - Social History Smoking Status: Former smoker Smokeless Tobacco Status: No Alcohol use: none Drug use: none - Family History Father Family Member Ethnicity: Non- Living Status: Hx Family Cancer: Yes (Metastatic cancer) Mother Family Member Ethnicity: Non- Living Status: Hx Family Cardiac Disorders: Yes (CVA) Hx Family Neurologic Disorders: Yes (CVA) Brother Family Member Ethnicity: Non- Living Status: Hx Family Neurologic Disorders: Yes (Alzheimer's disease) Sister Family Member Ethnicity: Non- Living Status: Hx Family Cancer: Yes (Melanoma/Metastatic cancer) Internal Medicine - H&P: Meds Cyanocobalamin (Vitamin B-12) [B-12] 50,000 mcg SL QWEEK 04/21/18 [History] Donepezil HCl [Aricept] 5 mg PO HS 04/21/18 [History] Ondansetron ODT [Zofran ODT] 4 mg SL Q6H PRN 05/08/18 [History] Sennosides/Docusate Sodium [Senna Plus] 2 each PO BID PRN #60 tablet 05/13/18 [Rx] ARIPiprazole [Abilify] 5 mg PO DAILY 02/26/19 [History] Aspirin Enteric Coated [Aspirin EC] 81 mg PO DAILY 02/26/19 [History] Atorvastatin Calcium [Lipitor] 20 mg PO DAILY 02/26/19 [History] Cinacalcet [Sensipar] 30 mg PO BID 02/26/19 [History] Ergocalciferol (VITAMIN D2) [Vitamin D2] 50,000 unit PO QWEEK 02/26/19 [History] Metoprolol [Lopressor] 25 mg PO DAILY 02/26/19 [History] Montelukast [Singulair] 10 mg PO DAILY 02/26/19 [History] Nitroglycerin [Nitrostat] 0.4 mg SL AD PRN 02/26/19 [History] clonazePAM [Clonazepam] 2 mg PO QPM 02/26/19 [History] clonazePAM [Klonopin] 1 mg PO QAM 02/26/19 [History] Omeprazole [PriLOSEC] 20 mg PO BID #60 capsule. 03/01/19 [Rx] Sucralfate [Carafate] 1 gm PO QIDAC #120 tablet 03/01/19 [Rx] Allergy/AdvReac Type Severity Reaction Status Date / Time No Known Allergies Allergy Verified 02/26/19 22:50 All Systems PM: A 10-system review of systems was performed and is negative for pertinent findings except as documented above in the HPI. Review of systems: Review of systems from her April 2018 [facility] hospitalization were reviewed and revised as below. Gen.: Her weight has decreased from 68.039 kg 04/21/2018. to 47.536 kg on admission now. It has not changed since her February 2019 [facility] hospitalization. Cardiovascular: She has history of hypertension but denies OH heart failure angina DVT or pulmonary embolus. She reports feeling her heart beat rapidly when she is having anxiety Respiratory: She smoked from approximately age [age] up to 2-1/2 packs per day. She denies chronic lung disease and does not use home oxygen. She reports open lung biopsy was done over 10 years ago in [place] to remove what was felt to be malignancy. She denies malignancy was actually found at that time. She has been diagnosed with lung cancer within the past year GI: She denies disorders of her liver gallbladder or exocrine pancreas. She has GERD : She has had kidney stones in the past. She reports a right nephrectomy was done over 10 years ago but cannot clearly state the reason for this. She denies other kidney or bladder disorders Neurologic: She has dementia. She is uncertain if she has had a stroke. She denies seizures. Endocrine: She reports being diagnosed with DM 2 approximately 20 years ago but does not take medication. She denies thyroid disease but has hyperlipidemia Hematology/oncology: As per history of present illness Psychiatric: She has anxiety and depression [place] skeletal: She has DJD but denies gout or other bone joint or muscle disorders. - Constitutional Vitals: Temp Pulse Resp BP Pulse Ox 98.3 F 81 16 138/68 98 05/11/19 08:54 05/11/19 11:02 05/11/19 11:02 05/11/19 11:02 05/11/19 11:02 Exam: Gen.: She is pale but well-developed well-nourished female lying in bed who appears in no acute distress HEENT: Head is atraumatic and normocephalic. Eyes: EOMI. There is no scleral icterus. Mouth: Mucosa is moist. Neck: Supple and nontender. There is no thyromegaly or adenopathy noted. Heart: Regular without murmurs gallops or ectopics Lungs: No wheezes or crackles are heard. Abdomen: Soft and nontender. No masses or guarding are noted. Extremities: There is no cyanosis edema or clubbing noted. Dorsalis pedis and posterior tibial pulses are trace to 1+ palpable bilaterally. Neurologic: Mental status: She is talkative and a fair to good historian. Cranial nerves: Smile is symmetric. Forehead wrinkles bilaterally. Tongue protrudes midline. EOMI. Motor: There is no pronator drift. She had a rhythmic tremor of her jaw at rest Cerebellar: Finger to nose is intact bilaterally. Skin: Warm and dry Internal Med - H&P Results - Labs CBC & Chem 7: 05/11/19 09:09 05/11/19 09:09 Labs: Short CBC 05/11/19 Range/Units 09:09 WBC 3.2 L (4.3-11.1) K/mcL Hgb 11.2 L (11.5-15.4) g/dL Hct 33.3 L (35.3-44.9) % Plt Count 125 L (140-400) K/mcL Neutrophils # 2.4 (1.6-8.9) K/mcL BMP 05/11/19 09:09 Sodium 144 Potassium 3.2 L Chloride 106 Carbon Dioxide 29 BUN 13 Creatinine 1.23 H Glucose 111 H Calcium 11.4 H Cardiac Enzymes 05/11/19 Range/Units 09:09 Troponin I < 0.03 (< 0.04) ng/mL Liver Function 05/11/19 Range/Units 09:09 Total Bilirubin 0.4 (0.3-1.0) mg/dL AST 14 (13-39) Units/L ALT 6 L (7-52) Units/L Alkaline Phosphatase 42 (34-104) Units/L Albumin 3.9 (3.5-5.7) g/dL Urine 05/11/19 Range/Units 09:58 Urine Color Yellow (Yellow) Urine Clarity Slightly Cloudy A (Clear) Urine pH 6.5 (5.0-8.0) pH Units Ur Specific [place] 1.020 (1.010-1.025) Urine Protein Trace (Neg-Trace) mg/dL Urine Glucose (UA) Normal (Normal) mg/dL - Impressions ITS Impressions Chest X-Ray 05/11/19 09:00 IMPRESSION: 1. Suspected trace bilateral pleural effusions. 2. Ill-defined nodular densities along the right apex are stable from the most recent prior exam. D/ / Domingo May MD / Domingo May MD Interpreting Provider: Domingo May MD Head CT 05/11/19 09:00 IMPRESSION: No acute intracranial abnormality. D/ / Jose Nelson MD / Jose Nelson MD Interpreting Provider: Jose Nelson MD
[2019-05-12 06:15] LABS: Basophils % 0.8 %; Eosinophils # 0.1 K/mcL (0.0-0.6); Eosinophils % 4.6 %; Hemoglobin 10.4 g/dL (11.5-15.4); Immature Granulocytes % 0.4 % (0-4); Lymphocytes # 0.6 K/mcL (0.6-4.6); Lymphocytes % 21.6 %; Mean Corpuscular HGB Conc 32.5 g/dL (31.6-35.5); Mean Corpuscular Hemoglobin 29.1 pg (28.0-33.3); Mean Corpuscular Volume 89.4 fL (83.0-100.0); Mean Platelet Volume 10.5 fL (9.4-12.4); Monocytes # 0.3 K/mcL (0.0-1.3); Monocytes % 11.2 %; Neutrophils # 1.6 K/mcL (1.6-8.9); Platelet Count 124 K/mcL (140-400); Red Blood Count 3.58 M/mcL (3.82-4.97); Red Cell Distribution Width 12.7 % (11.5-14.5); Segmented Neutrophils % 61.4 %; White Blood Count 2.6 K/mcL (4.3-11.1)
[2019-05-12 06:40] LABS: BUN/Creatinine Ratio 9 (6-26); Blood Urea Nitrogen 9 mg/dL (8-23); Calcium 10.2 mg/dL (8.6-10.3); Carbon Dioxide 27 mEq/L (23-29); Chloride 111 mEq/L (98-107); Glucose 85 mg/dL (70-105); Magnesium 1.5 mg/dL (1.6-2.6); Osmolality,Calculated 292 (280-300); Potassium 4.3 mEq/L (3.5-5.1); Sodium 142 mEq/L (136-145); eGFR For African Americans > 60 (> 60); eGFR For Non-African Americans 51 (> 60)
[2019-05-12] MEDS ORDERED: ARIPiprazole 5 MG TABLET PO SCH (09:00)
[2019-05-12] MEDS ORDERED: Aspirin Enteric Coated 81 MG Tablet PO SCH (09:00)
[2019-05-12] MEDS: Sucralfate 1 GM TABLET PO SCH ×2 (10:09→14:32)
--- NOTE | 2019-05-12 11:04 | Discharge Summary ---
Orders not resulted at time of discharge: Pending orders 05/11/19 09:58 Culture,Urine [RM] Stat Date of Encounter: 05/12/19 Time of Encounter: 10:55 - Discharge Diagnosis (1) Hypokalemia Priority: Primary Status: Resolved (2) Hypomagnesemia Priority: Secondary Status: Acute (3) Dementia Priority: Secondary Status: Chronic Qualifiers: Dementia type: unspecified type Dementia behavioral disturbance: without behavioral disturbance Qualified Code(s): F03.90 - Unspecified dementia without behavioral disturbance (4) Hypercalcemia Priority: Secondary Status: Resolved (5) DM type 2 (diabetes mellitus, type 2) Priority: Secondary Status: Chronic Qualifiers: Diabetes mellitus senior living insulin use: without senior living use Diabetes mellitus complication status: without complication Qualified Code(s): E11.9 - Type 2 diabetes mellitus without complications (6) Hypertension Priority: Secondary Status: Chronic Qualifiers: Hypertension type: essential hypertension Qualified Code(s): I10 - Essential (primary) hypertension (7) Anxiety and depression Priority: Secondary Status: Chronic (8) Anemia Priority: Secondary Status: Chronic Qualifiers: Anemia type: iron deficiency Iron deficiency anemia type: unspecified iron deficiency Qualified Code(s): D50.9 - Iron deficiency anemia, unspecified (9) Hyperparathyroidism Priority: Secondary Status: Chronic (10) CKD (chronic kidney disease) stage 3, GFR 30-59 ml/min Priority: Secondary Status: Chronic (11) UTI (urinary tract infection) Priority: Secondary Status: Acute Qualifiers: Urinary tract infection type: site unspecified Hematuria presence: with hematuria Qualified Code(s): N39.0 - Urinary tract infection, site not specified; R31.9 - Hematuria, unspecified (12) Lung cancer Priority: Secondary Status: Acute Qualifiers: Laterality: right Lung location: upper lobe of lung Qualified Code(s): C34.11 - Malignant neoplasm of upper lobe, right bronchus or lung Hospital course: Ms. Ibarra is a 74 year old female who came to emergency room stating she had increasing weakness over the past 2-3 weeks. She reports she had 4-5 days of diarrhea that ended 1 week ago. She denies vomiting or significant abdominal pain. She felt progressively weaker so came to emergency room. She was evaluated and found to have mild pancytopenia, hypercalcemia, hypokalemia, azotemia, and hypomagnesemia. She was admitted to [facility] floor for ongoing care needs. Initial orders were written by the emergency room physician. I saw her on May 11 and performed a history and physical. She was given supplemental potassium in emergency room. Potassium level was normal at 4.3 the following day. Supplemental magnesium was given by IV route in emergency room. Magnesium level had risen to 1.5 by day of discharge. She will continue with supplemental magnesium oxide at home for an additional week. Her PCP can monitor labs. Anemia testing from March 2019 was reviewed showing no factor deficiency. Her PCP can monitor CBC. She was given Rocephin empirically in emergency room for possible UTI. She will continue with antibiotic and probiotic for 3 additional days at discharge. Urine culture report is pending at time of discharge. 1,25 [place] vitamin D level was elevated at 107 on 04/13/2019. Supplemental vitamin D will be discontinued. Her calcium level normalized to 10.2 by day of discha rge. On May 12 she felt improved and stable for discharge home. She will follow with her PCP Gege Almaraz CNP within 1 week. She will follow with her oncologist as directed. - Time Spent with Patient Total time spent providing and/or coordinating discharge services: - Discharge Medications Prescriptions: New Magnesium Oxide 400 mg PO DAILY #7 tablet Potassium Chloride 10 meq PO DAILY #7 tab.er.prt Cefuroxime PO [Ceftin] 500 mg PO Q12HR #6 tablet Lactobacillus [Culturelle] 1 each PO BID #6 cap.sprink Continued Sennosides/Docusate Sodium [Senna Plus] 2 each PO BID PRN #60 tablet PRN Reason: Constipation Aspirin Enteric Coated [Aspirin EC] 81 mg PO DAILY Atorvastatin Calcium [Lipitor] 20 mg PO DAILY clonazePAM [Clonazepam] 2 mg PO QPM Metoprolol [Lopressor] 25 mg PO DAILY Sucralfate [Carafate] 1 gm PO QIDAC #120 tablet Omeprazole [PriLOSEC] 20 mg PO BID #60 capsule. Donepezil HCl [Aricept] 5 mg PO HS Cyanocobalamin (Vitamin B-12) [B-12] 50,000 mcg SL QWEEK Ondansetron ODT [Zofran ODT] 4 mg SL Q6H PRN PRN Reason: Nausea Cinacalcet [Sensipar] 30 mg PO BID Nitroglycerin [Nitrostat] 0.4 mg SL AD PRN PRN Reason: Chest Pain Montelukast [Singulair] 10 mg PO DAILY ARIPiprazole [Abilify] 5 mg PO DAILY clonazePAM [Klonopin] 1 mg PO QAM Discontinued Ergocalciferol (VITAMIN D2) [Vitamin D2] 50,000 unit PO QWEEK Home Medications: Cyanocobalamin (Vitamin B-12) [B-12] 50,000 mcg SL QWEEK 04/21/18 [History] Donepezil HCl [Aricept] 5 mg PO HS 04/21/18 [History] Ondansetron ODT [Zofran ODT] 4 mg SL Q6H PRN 05/08/18 [History] Sennosides/Docusate Sodium [Senna Plus] 2 each PO BID PRN #60 tablet 05/13/18 [Rx] ARIPiprazole [Abilify] 5 mg PO DAILY 02/26/19 [History] Aspirin Enteric Coated [Aspirin EC] 81 mg PO DAILY 02/26/19 [History] Atorvastatin Calcium [Lipitor] 20 mg PO DAILY 02/26/19 [History] Cinacalcet [Sensipar] 30 mg PO BID 02/26/19 [History] Metoprolol [Lopressor] 25 mg PO DAILY 02/26/19 [History] Montelukast [Singulair] 10 mg PO DAILY 02/26/19 [History] Nitroglycerin [Nitrostat] 0.4 mg SL AD PRN 02/26/19 [History] clonazePAM [Clonazepam] 2 mg PO QPM 02/26/19 [History] clonazePAM [Klonopin] 1 mg PO QAM 02/26/19 [History] Omeprazole [PriLOSEC] 20 mg PO BID #60 capsule. 03/01/19 [Rx] Sucralfate [Carafate] 1 gm PO QIDAC #120 tablet 03/01/19 [Rx] Cefuroxime PO [Ceftin] 500 mg PO Q12HR #6 tablet 05/12/19 [Rx] Lactobacillus [Culturelle] 1 each PO BID #6 cap.sprink 05/12/19 [Rx] Magnesium Oxide 400 mg PO DAILY #7 tablet 05/12/19 [Rx] Potassium Chloride 10 meq PO DAILY #7 tab.er.prt 05/12/19 [Rx] Allergies/Adverse Reactions: Allergy/AdvReac Type Severity Reaction Status Date / Time No Known Allergies Allergy Verified 02/26/19 22:50 Date of admission: 05/11/19 10:21 Primary care physician: Gege Almaraz CNP Consults: 05/11/19 12:14 Consult to Nutrition [CONS] Routine Comment: Consulting Provider: NUTRITION Reason for Dietary Consult: MST Score - Constitutional Vitals: Temp Pulse Resp BP Pulse Ox 98.7 F 87 16 126/72 96 05/12/19 06:50 05/12/19 06:50 05/12/19 06:50 05/12/19 06:50 05/12/19 06:50 - Patient Status Disposition: Home Health Service Condition: Good - Discharge Instructions Follow Up With: Gege Almaraz CNP [Primary Care Provider] - 1 week - Diet and Activity Activity: resume usual activities as tolerated Diet: advance to your usual diet
--- NOTE | 2019-05-12 11:15 | Physician Discharge Referral ---
Home Health/Hosp Referral Info Transfer to: Home Health Attending Provider: Joe Provider in Charge Post Discharge: PCP Caitlin) - Diagnosis (1) Hypokalemia Priority: Primary Status: Resolved (2) Hypomagnesemia Priority: Secondary Status: Acute (3) Dementia Priority: Secondary Status: Chronic (4) Hypercalcemia Priority: Secondary Status: Resolved (5) DM type 2 (diabetes mellitus, type 2) Priority: Secondary Status: Chronic (6) Hypertension Priority: Secondary Status: Chronic (7) Anxiety and depression Priority: Secondary Status: Chronic (8) Anemia Priority: Secondary Status: Chronic (9) Hyperparathyroidism Priority: Secondary Status: Chronic (10) CKD (chronic kidney disease) stage 3, GFR 30-59 ml/min Priority: Secondary Status: Chronic (11) UTI (urinary tract infection) Priority: Secondary Status: Acute (12) Lung cancer Priority: Secondary Status: Acute - Respiratory Orders Smoking Cessation: Smoking cessation has been advised. For more information, call the [place] [employer] Quit Line at 5-990-NRHE-NOW. - Diet/Nutrition Diet/Nutrition Orders: Mechanical Soft - Services Needed Following services are medically necessary services: Nursing, Home Health Aide, Physical Therapy, Occupational Therapy - Transfer Medications Prescriptions: Cefuroxime PO [Ceftin] 500 mg PO Q12HR #6 tablet Lactobacillus [Culturelle] 1 each PO BID #6 cap.sprink Magnesium Oxide 400 mg PO DAILY #7 tablet Potassium Chloride 10 meq PO DAILY #7 tab.er.prt Home Medications: Cyanocobalamin (Vitamin B-12) [B-12] 50,000 mcg SL QWEEK 04/21/18 [History] Donepezil HCl [Aricept] 5 mg PO HS 04/21/18 [History] Ondansetron ODT [Zofran ODT] 4 mg SL Q6H PRN 05/08/18 [History] Sennosides/Docusate Sodium [Senna Plus] 2 each PO BID PRN #60 tablet 05/13/18 [Rx] ARIPiprazole [Abilify] 5 mg PO DAILY 02/26/19 [History] Aspirin Enteric Coated [Aspirin EC] 81 mg PO DAILY 02/26/19 [History] Atorvastatin Calcium [Lipitor] 20 mg PO DAILY 02/26/19 [History] Cinacalcet [Sensipar] 30 mg PO BID 02/26/19 [History] Metoprolol [Lopressor] 25 mg PO DAILY 02/26/19 [History] Montelukast [Singulair] 10 mg PO DAILY 02/26/19 [History] Nitroglycerin [Nitrostat] 0.4 mg SL AD PRN 02/26/19 [History] clonazePAM [Clonazepam] 2 mg PO QPM 02/26/19 [History] clonazePAM [Klonopin] 1 mg PO QAM 02/26/19 [History] Omeprazole [PriLOSEC] 20 mg PO BID #60 capsule.dr 03/01/19 [Rx] Sucralfate [Carafate] 1 gm PO QIDAC #120 tablet 03/01/19 [Rx] Cefuroxime PO [Ceftin] 500 mg PO Q12HR #6 tablet 05/12/19 [Rx] Lactobacillus [Culturelle] 1 each PO BID #6 cap.sprink 05/12/19 [Rx] Magnesium Oxide 400 mg PO DAILY #7 tablet 05/12/19 [Rx] Potassium Chloride 10 meq PO DAILY #7 tab.er.prt 05/12/19 [Rx] Allergies/Adverse Reactions: Allergy/AdvReac Type Severity Reaction Status Date / Time No Known Allergies Allergy Verified 02/26/19 22:50 Certification: Further, I certify that my clinical findings support that this patient is homebound (i.e. absences from home require considerable and taxing effort and are for medical reasons or sikh services or infrequently or short duration when for other reasons) because: Homebound Reason: Leaving home requires considerable and taxing effort due to condition (Tremor, impaired walking ability with generalized weakness.) Attestation: My signature below is to certify that this patient is under my care and that I, or nurse practitioner, or a physician's team assistant working with me, has a [id number] encounter with this patient.
[2019-05-12 11:16] VITALS: BP 134/78
== END 2019-05-12 16:37 | disposition home health service (06) ==
LOC: EMEROOPIK 08:52 → INPPIK 08:52
PROVIDERS: ADMIT Internal Medicine; ATTEND Internal Medicine

== ENCOUNTER 2021-01-18 11:18 | Inpatient (IN) ==
[2021-01-18] MEDS ORDERED: 0.9 % Sodium Chloride 1,000 ML IVC ONE (11:46)
[2021-01-18 12:09] LABS: Basophils % 0.3 %; Eosinophils % 0.1 %; Hematocrit 34.2 % (35.3-44.9); Hemoglobin 11.2 g/dL (11.5-15.4); Immature Granulocytes % 0.4 % (0-4); Lymphocytes # 0.4 K/mcL (0.6-4.6); Lymphocytes % 5.3 %; Mean Corpuscular HGB Conc 32.7 g/dL (31.6-35.5); Mean Corpuscular Volume 88.6 fL (83.0-100.0); Mean Platelet Volume 9.8 fL (9.4-12.4); Monocytes # 0.2 K/mcL (0.0-1.3); Monocytes % 2.2 %; Neutrophils # 6.4 K/mcL (1.6-8.9); Platelet Count 211 K/mcL (140-400); Red Blood Count 3.86 M/mcL (3.82-4.97); Red Cell Distribution Width 14.5 % (11.5-14.5); Segmented Neutrophils % 91.7 %
[2021-01-18 12:23] LABS: INR 1.5
[2021-01-18 12:29] LABS: Alanine Aminotransferase 8 Units/L (7-52); Albumin 3.9 g/dL (3.5-5.7); Albumin/Globulin Ratio 2.1 (1.1-2.2); Alkaline Phosphatase 38 Units/L (34-104); Aspartate Amino Transferase 14 Units/L (13-39); BUN/Creatinine Ratio 19 (6-26); Bilirubin,Total 0.3 mg/dL (0.3-1.0); Blood Urea Nitrogen 17 mg/dL (8-23); Calcium 12.6 mg/dL (8.6-10.3); Carbon Dioxide 26 mEq/L (23-29); Chloride 104 mEq/L (98-107); Globulin 1.9 g/dL (2.4-3.5); Glucose 98 mg/dL (70-105); Osmolality,Calculated 288 (280-300); Potassium 4.1 mEq/L (3.5-5.1); Sodium 138 mEq/L (136-145); Total Protein 5.8 g/dL (6.4-8.9); eGFR For African Americans > 60 (> 60); eGFR For Non-African Americans > 60 (> 60)
[2021-01-18 13:21] LABS: Bilirubin,Urine Large (Negative); Blood,Urine Trace-lysed (Negative); Clarity,Urine Clear (Clear); Color,Urine Yellow (Yellow); Glucose,Urine (UA) Normal (Normal); Ketones,Urine >=160 mg/dL (Negative); Leukocyte Esterase,Urine Negative (Negative); Nitrite,Urine Negative (Negative); PH,Urine 5.5 pH Units (5.0-8.0); Protein,Urine 30 mg/dL (Neg-Trace); Specific Gravity,Urine >= 1.030 (1.010-1.025); Urobilinogen,Urine Normal (Normal)
[2021-01-18 13:38] LABS: RBC,Urine 0-3 per hpf (0-3); Squamous Epithelial Cell,Urine Few per hpf (None-Few); WBC,Urine 0-3 per hpf (0-3)
[2021-01-18 13:40] LABS: Hyaline Casts,Urine Few per lpf (None Seen)
[2021-01-18] MEDS ORDERED: Acetaminophen 325 MG TABLET PO PRN (14:00)
[2021-01-18] MEDS ORDERED: Ondansetron ODT 4 MG TAB.RAPDIS SL PRN (14:00)
[2021-01-18] MEDS ORDERED: Naloxone 0.4 MG/ML INJ IVP PRN (14:00)
[2021-01-18] MEDS ORDERED: Cyanocobalamin (B-12) 1,000 MCG TABLET PO SCH (14:45)
[2021-01-18] MEDS: Ringers Solution, Lactated 1,000 ML IVC SCH (15:17)
[2021-01-18] MEDS: Sucralfate 1 GM TABLET PO SCH ×2 (16:51→20:15)
[2021-01-18] MEDS: Mirtazapine 15 MG TABLET PO SCH (20:15)
[2021-01-18] MEDS: clonazePAM 0.5 MG TABLET PO SCH (20:15)
[2021-01-19] MEDS: Ringers Solution, Lactated 1,000 ML IVC SCH (03:30)
[2021-01-19 03:55] LABS: VBG Ionized Calcium 1.69 mmol/L (1.15-1.35)
[2021-01-19 04:09] LABS: Hematocrit 31.7 % (35.3-44.9); Hemoglobin 10.2 g/dL (11.5-15.4); Mean Corpuscular HGB Conc 32.2 g/dL (31.6-35.5); Mean Corpuscular Hemoglobin 28.8 pg (28.0-33.3); Mean Corpuscular Volume 89.5 fL (83.0-100.0); Mean Platelet Volume 10.4 fL (9.4-12.4); Platelet Count 183 K/mcL (140-400); Red Blood Count 3.54 M/mcL (3.82-4.97); Red Cell Distribution Width 14.5 % (11.5-14.5); White Blood Count 5.3 K/mcL (4.3-11.1)
[2021-01-19 04:28] LABS: BUN/Creatinine Ratio 23 (6-26); Blood Urea Nitrogen 15 mg/dL (8-23); Calcium 11.7 mg/dL (8.6-10.3); Carbon Dioxide 26 mEq/L (23-29); Chloride 104 mEq/L (98-107); Glucose 59 mg/dL (70-105); Magnesium 0.5 mg/dL (1.6-2.6); Osmolality,Calculated 287 (280-300); Phosphorous 1.8 mg/dL (2.7-4.5); Potassium 3.5 mEq/L (3.5-5.1); Sodium 139 mEq/L (136-145); eGFR For African Americans > 60 (> 60); eGFR For Non-African Americans > 60 (> 60)
[2021-01-19 04:35] LABS: INR 1.4; Prothrombin Time 16.2 Seconds (9.4-12.1)
[2021-01-19] MEDS: *HR* Enoxaparin 40 MG/0.4 ML SYRINGE SQ SCH (05:07)
[2021-01-19] MEDS ORDERED: Dextrose Gel 15 GM/37.5 ML TUBE PO PRN ×2 (05:30)
[2021-01-19] MEDS ORDERED: D5% in Water 1,000 ML IVC PRN (05:30)
[2021-01-19] MEDS ORDERED: *HR* Dextrose 50 % in Water (Vial) 50 ML VIAL IVP PRN (05:30)
[2021-01-19] MEDS: Magnesium Oxide 400 MG TABLET PO SCH (08:31)
[2021-01-19] MEDS: Aspirin Enteric Coated 81 MG Tablet PO SCH (08:31)
[2021-01-19] MEDS: Sucralfate 1 GM TABLET PO SCH ×4 (08:32→19:18)
[2021-01-19] MEDS: clonazePAM 0.5 MG TABLET PO SCH ×2 (08:32→22:04)
[2021-01-19 17:26] LABS: Magnesium 1.4 mg/dL (1.6-2.6); Phosphorous 1.8 mg/dL (2.7-4.5)
[2021-01-19] MEDS ORDERED: Magnesium Oxide 400 MG TABLET PO STA (18:04)
[2021-01-19] MEDS: Mirtazapine 15 MG TABLET PO SCH (22:05)
[2021-01-20] MEDS: *HR* Enoxaparin 40 MG/0.4 ML SYRINGE SQ SCH (05:42)
[2021-01-20] MEDS: Aspirin Enteric Coated 81 MG Tablet PO SCH (09:00)
[2021-01-20] MEDS: clonazePAM 0.5 MG TABLET PO SCH ×2 (09:00→20:22)
[2021-01-20] MEDS: Magnesium Oxide 400 MG TABLET PO SCH (09:00)
[2021-01-20] MEDS: Sucralfate 1 GM TABLET PO SCH ×4 (09:00→20:22)
[2021-01-20] MEDS: Mirtazapine 15 MG TABLET PO SCH (20:22)
[2021-01-21] MEDS: *HR* Enoxaparin 40 MG/0.4 ML SYRINGE SQ SCH (05:29)
[2021-01-21 07:24] VITALS: BP 106/69
[2021-01-21 07:39] LABS: BUN/Creatinine Ratio 17 (6-26); Blood Urea Nitrogen 13 mg/dL (8-23); Calcium 11.8 mg/dL (8.6-10.3); Carbon Dioxide 35 mEq/L (23-29); Chloride 101 mEq/L (98-107); Glucose 101 mg/dL (70-105); Magnesium 0.8 mg/dL (1.6-2.6); Osmolality,Calculated 290 (280-300); Phosphorous 2.4 mg/dL (2.7-4.5); Potassium 3.5 mEq/L (3.5-5.1); Sodium 140 mEq/L (136-145); eGFR For African Americans > 60 (> 60); eGFR For Non-African Americans > 60 (> 60)
[2021-01-21] MEDS: Magnesium Oxide 400 MG TABLET PO SCH (08:48)
[2021-01-21] MEDS: Aspirin Enteric Coated 81 MG Tablet PO SCH (08:48)
[2021-01-21] MEDS: clonazePAM 0.5 MG TABLET PO SCH (08:49)
[2021-01-21] MEDS: Sucralfate 1 GM TABLET PO SCH ×2 (08:49→10:36)
[2021-01-21] MEDS ORDERED: Magnesium Oxide 400 MG TABLET PO SCH (21:00)
== END 2021-01-21 13:42 | disposition other institution (70) | DRG 563 ==
LOC: INPPIK 11:18 → EMEROOPIK 11:18 → INPPIK 14:21
PROVIDERS: ADMIT Family Medicine; ATTEND Family Medicine

== ENCOUNTER 2021-01-19 18:44 | Inpatient (IN) ==
[2021-01-21] MEDS ORDERED: Nitroglycerin 0.4 MG TAB.SUBL SL PRN (11:24)
[2021-01-21] MEDS: Sucralfate 1 GM TABLET PO SCH ×3 (14:13→21:11)
[2021-01-21] MEDS: *HR* HYDROcodone/Acet 5/325 mg TABLET PO PRN (21:09)
[2021-01-21] MEDS: Magnesium Oxide 400 MG TABLET PO SCH (21:11)
[2021-01-21] MEDS: clonazePAM 0.5 MG TABLET PO SCH (21:11)
[2021-01-21] MEDS: Mirtazapine 15 MG TABLET PO SCH (21:11)
[2021-01-22] MEDS: *HR* Enoxaparin 40 MG/0.4 ML SYRINGE SQ SCH (05:49)
[2021-01-22] MEDS: Magnesium Oxide 400 MG TABLET PO SCH ×2 (08:35→20:38)
[2021-01-22] MEDS: Sucralfate 1 GM TABLET PO SCH ×4 (08:37→21:59)
[2021-01-22] MEDS: clonazePAM 0.5 MG TABLET PO SCH ×2 (08:37→20:37)
[2021-01-22] MEDS: Aspirin Enteric Coated 81 MG Tablet PO SCH (08:37)
[2021-01-22 09:56] LABS: Hematocrit 30.7 % (35.3-44.9); Hemoglobin 10.3 g/dL (11.5-15.4); Mean Corpuscular HGB Conc 33.6 g/dL (31.6-35.5); Mean Corpuscular Hemoglobin 29.4 pg (28.0-33.3); Mean Corpuscular Volume 87.7 fL (83.0-100.0); Mean Platelet Volume 11.5 fL (9.4-12.4); Red Cell Distribution Width 14.3 % (11.5-14.5)
[2021-01-22 10:16] LABS: BUN/Creatinine Ratio 18 (6-26); Blood Urea Nitrogen 16 mg/dL (8-23); Carbon Dioxide 33 mEq/L (23-29); Chloride 99 mEq/L (98-107); Glucose 132 mg/dL (70-105); Osmolality,Calculated 289 (280-300); Potassium 3.6 mEq/L (3.5-5.1); Sodium 138 mEq/L (136-145); eGFR For African Americans > 60 (> 60); eGFR For Non-African Americans > 60 (> 60)
[2021-01-22 10:52] LABS: Platelet Count 99 K/mcL (140-400); White Blood Count 2.9 K/mcL (4.3-11.1)
[2021-01-22] MEDS: Mirtazapine 15 MG TABLET PO SCH (20:38)
[2021-01-23] MEDS: *HR* Enoxaparin 40 MG/0.4 ML SYRINGE SQ SCH (05:21)
[2021-01-23 07:07] LABS: Hematocrit 32.3 % (35.3-44.9); Hemoglobin 10.4 g/dL (11.5-15.4); Mean Corpuscular HGB Conc 32.2 g/dL (31.6-35.5); Mean Corpuscular Hemoglobin 29.2 pg (28.0-33.3); Mean Corpuscular Volume 90.7 fL (83.0-100.0); Mean Platelet Volume 10.5 fL (9.4-12.4); Platelet Count 158 K/mcL (140-400); Red Blood Count 3.56 M/mcL (3.82-4.97); Red Cell Distribution Width 14.1 % (11.5-14.5); White Blood Count 6.4 K/mcL (4.3-11.1)
[2021-01-23 07:26] LABS: Calcium 12.7 mg/dL (8.6-10.3); Magnesium 1.8 mg/dL (1.6-2.6); Potassium 3.9 mEq/L (3.5-5.1)
[2021-01-23] MEDS: Magnesium Oxide 400 MG TABLET PO SCH ×2 (08:16→20:18)
[2021-01-23] MEDS: Sucralfate 1 GM TABLET PO SCH ×4 (08:16→21:22)
[2021-01-23] MEDS: clonazePAM 0.5 MG TABLET PO SCH ×2 (08:16→20:18)
[2021-01-23] MEDS: Aspirin Enteric Coated 81 MG Tablet PO SCH (08:17)
[2021-01-23] MEDS: *HR* HYDROcodone/Acet 5/325 mg TABLET PO PRN (13:26)
[2021-01-23] MEDS: Mirtazapine 15 MG TABLET PO SCH (20:18)
[2021-01-24] MEDS: *HR* Enoxaparin 40 MG/0.4 ML SYRINGE SQ SCH (05:35)
[2021-01-24] MEDS: clonazePAM 0.5 MG TABLET PO SCH ×2 (08:12→20:47)
[2021-01-24] MEDS: Sucralfate 1 GM TABLET PO SCH ×4 (08:12→22:02)
[2021-01-24] MEDS: Magnesium Oxide 400 MG TABLET PO SCH ×2 (08:13→20:47)
[2021-01-24] MEDS: Aspirin Enteric Coated 81 MG Tablet PO SCH (08:13)
[2021-01-24] MEDS: Ondansetron ODT 4 MG TAB.RAPDIS SL PRN (12:12)
[2021-01-24] MEDS: Mirtazapine 15 MG TABLET PO SCH (20:47)
[2021-01-24] MEDS: Acetaminophen 325 MG TABLET PO PRN (20:48)
[2021-01-25] MEDS: *HR* Enoxaparin 40 MG/0.4 ML SYRINGE SQ SCH (05:56)
[2021-01-25] MEDS: Sucralfate 1 GM TABLET PO SCH ×4 (08:23→21:04)
[2021-01-25] MEDS: Aspirin Enteric Coated 81 MG Tablet PO SCH (08:24)
[2021-01-25] MEDS: clonazePAM 0.5 MG TABLET PO SCH ×2 (08:24→21:04)
[2021-01-25] MEDS: Magnesium Oxide 400 MG TABLET PO SCH ×2 (08:24→21:04)
[2021-01-25] MEDS: Cyanocobalamin (B-12) 1,000 MCG TABLET PO SCH (09:05)
[2021-01-25] MEDS: Acetaminophen 325 MG TABLET PO PRN (21:05)
[2021-01-25] MEDS: Mirtazapine 15 MG TABLET PO SCH (21:05)
[2021-01-26] MEDS: *HR* Enoxaparin 30 MG/0.3 ML SYRINGE SQ SCH (05:32)
[2021-01-26 06:30] LABS: Basophils % 0.9 %; Eosinophils # 0.2 K/mcL (0.0-0.6); Eosinophils % 5.1 %; Immature Granulocytes % 0.3 % (0-4); Lymphocytes # 0.9 K/mcL (0.6-4.6); Lymphocytes % 25.3 %; Mean Corpuscular HGB Conc 30.3 g/dL (31.6-35.5); Mean Corpuscular Hemoglobin 28.9 pg (28.0-33.3); Mean Corpuscular Volume 95.4 fL (83.0-100.0); Mean Platelet Volume 10.2 fL (9.4-12.4); Monocytes # 0.5 K/mcL (0.0-1.3); Monocytes % 13.1 %; Platelet Count 182 K/mcL (140-400); Red Blood Count 3.46 M/mcL (3.82-4.97); Red Cell Distribution Width 13.5 % (11.5-14.5); Segmented Neutrophils % 55.3 %; White Blood Count 3.5 K/mcL (4.3-11.1)
[2021-01-26 06:50] LABS: Neutrophils # 1.9 K/mcL (1.6-8.9)
[2021-01-26 06:54] LABS: Calcium 13.4 mg/dL (8.6-10.3); Magnesium 1.6 mg/dL (1.6-2.6); Potassium 4.7 mEq/L (3.5-5.1)
[2021-01-26] MEDS ORDERED: 0.9 % Sodium Chloride 1,000 ML IVC SCH (08:15)
[2021-01-26] MEDS: clonazePAM 0.5 MG TABLET PO SCH ×2 (08:48→20:05)
[2021-01-26] MEDS: Sucralfate 1 GM TABLET PO SCH ×4 (08:48→23:26)
[2021-01-26] MEDS: Aspirin Enteric Coated 81 MG Tablet PO SCH (08:48)
[2021-01-26] MEDS: Magnesium Oxide 400 MG TABLET PO SCH ×2 (08:50→20:04)
[2021-01-26] MEDS: 0.9 % Sodium Chloride 1,000 ML IVC SCH ×2 (12:46→20:08)
[2021-01-26] MEDS: *HR* HYDROcodone/Acet 5/325 mg TABLET PO PRN (16:14)
[2021-01-26] MEDS: Mirtazapine 15 MG TABLET PO SCH (20:04)
[2021-01-26] MEDS: Acetaminophen 325 MG TABLET PO PRN (20:04)
[2021-01-27] MEDS: *HR* Enoxaparin 30 MG/0.3 ML SYRINGE SQ SCH (05:02)
[2021-01-27] MEDS: 0.9 % Sodium Chloride 1,000 ML IVC SCH ×2 (06:06→16:13)
[2021-01-27] MEDS: Aspirin Enteric Coated 81 MG Tablet PO SCH (08:07)
[2021-01-27] MEDS: clonazePAM 0.5 MG TABLET PO SCH ×2 (08:08→20:13)
[2021-01-27] MEDS: Sucralfate 1 GM TABLET PO SCH ×4 (08:08→20:15)
[2021-01-27] MEDS: Magnesium Oxide 400 MG TABLET PO SCH ×2 (08:08→20:12)
[2021-01-27 09:18] LABS: VBG Ionized Calcium 1.19 mmol/L (1.15-1.35)
[2021-01-27 09:23] LABS: Potassium 3.9 mEq/L (3.5-5.1)
[2021-01-27 09:57] LABS: Thyroid Stimulating Hormone 2.533 mcIU/mL (0.340-5.600)
[2021-01-27] MEDS: Mirtazapine 15 MG TABLET PO SCH (20:12)
[2021-01-27] MEDS: Acetaminophen 325 MG TABLET PO PRN (20:13)
[2021-01-27 21:28] LABS: Triiodothyronine (T3) Total 0.81 ng/mL (0.87-1.78)
[2021-01-28] MEDS: 0.9 % Sodium Chloride 1,000 ML IVC SCH ×3 (02:15→21:59)
[2021-01-28] MEDS: *HR* Enoxaparin 30 MG/0.3 ML SYRINGE SQ SCH (05:09)
[2021-01-28] MEDS: Aspirin Enteric Coated 81 MG Tablet PO SCH (08:04)
[2021-01-28] MEDS: Magnesium Oxide 400 MG TABLET PO SCH ×2 (08:05→21:53)
[2021-01-28] MEDS: clonazePAM 0.5 MG TABLET PO SCH ×2 (08:05→21:53)
[2021-01-28] MEDS: Sucralfate 1 GM TABLET PO SCH ×4 (08:05→21:54)
[2021-01-28] MEDS: Mirtazapine 15 MG TABLET PO SCH (21:53)
[2021-01-28] MEDS: Acetaminophen 325 MG TABLET PO PRN (21:53)
[2021-01-29] MEDS: *HR* Enoxaparin 30 MG/0.3 ML SYRINGE SQ SCH (04:55)
[2021-01-29 09:56] LABS: Calcium 11.1 mg/dL (8.6-10.3); Potassium 3.5 mEq/L (3.5-5.1)
[2021-01-29] MEDS: Magnesium Oxide 400 MG TABLET PO SCH ×2 (10:07→20:00)
[2021-01-29] MEDS: Sucralfate 1 GM TABLET PO SCH ×4 (10:07→20:01)
[2021-01-29] MEDS: clonazePAM 0.5 MG TABLET PO SCH ×2 (10:07→20:00)
[2021-01-29] MEDS: Aspirin Enteric Coated 81 MG Tablet PO SCH (10:07)
[2021-01-29] MEDS: 0.9 % Sodium Chloride 1,000 ML IVC SCH (12:51)
[2021-01-29] MEDS: Mirtazapine 15 MG TABLET PO SCH (20:00)
[2021-01-30] MEDS: *HR* Enoxaparin 30 MG/0.3 ML SYRINGE SQ SCH (05:47)
[2021-01-30] MEDS: Sucralfate 1 GM TABLET PO SCH ×4 (10:11→20:04)
[2021-01-30] MEDS: clonazePAM 0.5 MG TABLET PO SCH ×2 (10:11→20:04)
[2021-01-30] MEDS: Aspirin Enteric Coated 81 MG Tablet PO SCH (10:11)
[2021-01-30] MEDS: Magnesium Oxide 400 MG TABLET PO SCH ×2 (10:12→20:04)
[2021-01-30] MEDS: Acetaminophen 325 MG TABLET PO PRN (20:04)
[2021-01-30] MEDS: Mirtazapine 15 MG TABLET PO SCH (20:04)
[2021-01-31] MEDS: *HR* Enoxaparin 30 MG/0.3 ML SYRINGE SQ SCH (06:02)
[2021-01-31] MEDS: Acetaminophen 325 MG TABLET PO PRN (06:02)
[2021-01-31] MEDS: Aspirin Enteric Coated 81 MG Tablet PO SCH (10:54)
[2021-01-31] MEDS: Magnesium Oxide 400 MG TABLET PO SCH ×2 (10:55→21:14)
[2021-01-31] MEDS: clonazePAM 0.5 MG TABLET PO SCH ×2 (10:55→21:14)
[2021-01-31] MEDS: Sucralfate 1 GM TABLET PO SCH ×4 (10:55→21:14)
[2021-01-31] MEDS: Mirtazapine 15 MG TABLET PO SCH (21:14)
[2021-02-01] MEDS: *HR* Enoxaparin 30 MG/0.3 ML SYRINGE SQ SCH (05:08)
[2021-02-01] MEDS: clonazePAM 0.5 MG TABLET PO SCH ×2 (09:49→21:04)
[2021-02-01] MEDS: Sucralfate 1 GM TABLET PO SCH ×4 (09:49→21:04)
[2021-02-01] MEDS: Aspirin Enteric Coated 81 MG Tablet PO SCH (09:49)
[2021-02-01] MEDS: Magnesium Oxide 400 MG TABLET PO SCH ×2 (09:50→21:04)
[2021-02-01] MEDS: Cyanocobalamin (B-12) 1,000 MCG TABLET PO SCH (09:53)
[2021-02-01] MEDS: Mirtazapine 15 MG TABLET PO SCH (21:04)
[2021-02-02] MEDS: *HR* Enoxaparin 30 MG/0.3 ML SYRINGE SQ SCH (05:26)
[2021-02-02] MEDS: Aspirin Enteric Coated 81 MG Tablet PO SCH (10:02)
[2021-02-02] MEDS: Sucralfate 1 GM TABLET PO SCH ×4 (10:02→20:12)
[2021-02-02] MEDS: Magnesium Oxide 400 MG TABLET PO SCH ×2 (10:02→20:12)
[2021-02-02] MEDS: clonazePAM 0.5 MG TABLET PO SCH ×2 (10:02→20:12)
[2021-02-02] MEDS: *HR* HYDROcodone/Acet 5/325 mg TABLET PO PRN ×2 (13:43→20:11)
[2021-02-02] MEDS: Mirtazapine 15 MG TABLET PO SCH (20:11)
[2021-02-02] MEDS: Ondansetron ODT 4 MG TAB.RAPDIS SL PRN (20:12)
[2021-02-03] MEDS: *HR* Enoxaparin 30 MG/0.3 ML SYRINGE SQ SCH (05:53)
[2021-02-03] MEDS: Magnesium Oxide 400 MG TABLET PO SCH ×2 (08:19→19:49)
[2021-02-03] MEDS: Sucralfate 1 GM TABLET PO SCH ×4 (08:19→19:49)
[2021-02-03] MEDS: clonazePAM 0.5 MG TABLET PO SCH ×2 (08:19→19:49)
[2021-02-03] MEDS: Aspirin Enteric Coated 81 MG Tablet PO SCH (08:19)
[2021-02-03 08:22] LABS: Hematocrit 28.5 % (35.3-44.9); Hemoglobin 8.9 g/dL (11.5-15.4); Mean Corpuscular HGB Conc 31.2 g/dL (31.6-35.5); Mean Corpuscular Hemoglobin 29.5 pg (28.0-33.3); Mean Corpuscular Volume 94.4 fL (83.0-100.0); Mean Platelet Volume 9.8 fL (9.4-12.4); Platelet Count 209 K/mcL (140-400); Red Blood Count 3.02 M/mcL (3.82-4.97); Red Cell Distribution Width 13.5 % (11.5-14.5); White Blood Count 4.2 K/mcL (4.3-11.1)
[2021-02-03 08:41] LABS: Potassium 4.3 mEq/L (3.5-5.1)
[2021-02-03] MEDS: Ondansetron ODT 4 MG TAB.RAPDIS SL PRN (19:48)
[2021-02-03] MEDS: Acetaminophen 325 MG TABLET PO PRN (19:49)
[2021-02-03] MEDS: Mirtazapine 15 MG TABLET PO SCH (19:49)
[2021-02-04] MEDS: *HR* Enoxaparin 30 MG/0.3 ML SYRINGE SQ SCH (06:39)
[2021-02-04] MEDS: Sucralfate 1 GM TABLET PO SCH ×4 (08:26→20:21)
[2021-02-04] MEDS: clonazePAM 0.5 MG TABLET PO SCH ×2 (08:26→20:20)
[2021-02-04] MEDS: Magnesium Oxide 400 MG TABLET PO SCH ×2 (08:26→20:21)
[2021-02-04] MEDS: Aspirin Enteric Coated 81 MG Tablet PO SCH (08:26)
[2021-02-04] MEDS: Mirtazapine 15 MG TABLET PO SCH (20:20)
[2021-02-05] MEDS: *HR* Enoxaparin 30 MG/0.3 ML SYRINGE SQ SCH (06:34)
[2021-02-05] MEDS: Sucralfate 1 GM TABLET PO SCH ×4 (08:04→20:49)
[2021-02-05] MEDS: Ondansetron ODT 4 MG TAB.RAPDIS SL PRN (08:23)
[2021-02-05] MEDS: Aspirin Enteric Coated 81 MG Tablet PO SCH (09:22)
[2021-02-05] MEDS: Magnesium Oxide 400 MG TABLET PO SCH ×2 (09:22→20:49)
[2021-02-05] MEDS: clonazePAM 0.5 MG TABLET PO PRN (16:25)
[2021-02-05] MEDS: Mirtazapine 15 MG TABLET PO SCH (20:49)
[2021-02-05] MEDS: Acetaminophen 325 MG TABLET PO PRN (20:52)
[2021-02-06] MEDS: *HR* Enoxaparin 30 MG/0.3 ML SYRINGE SQ SCH (06:43)
[2021-02-06] MEDS: Acetaminophen 325 MG TABLET PO PRN (08:13)
[2021-02-06] MEDS: Aspirin Enteric Coated 81 MG Tablet PO SCH (08:13)
[2021-02-06] MEDS: Magnesium Oxide 400 MG TABLET PO SCH ×2 (08:14→21:11)
[2021-02-06] MEDS: Sucralfate 1 GM TABLET PO SCH ×4 (08:14→21:10)
[2021-02-06] MEDS: clonazePAM 0.5 MG TABLET PO PRN (08:24)
[2021-02-06] MEDS: Mirtazapine 15 MG TABLET PO SCH (21:11)
[2021-02-06] MEDS: *HR* HYDROcodone/Acet 5/325 mg TABLET PO PRN (21:11)
[2021-02-07] MEDS: *HR* Enoxaparin 30 MG/0.3 ML SYRINGE SQ SCH (06:03)
[2021-02-07] MEDS: clonazePAM 0.5 MG TABLET PO PRN ×2 (09:13→21:28)
[2021-02-07] MEDS: Aspirin Enteric Coated 81 MG Tablet PO SCH (09:14)
[2021-02-07] MEDS: Sucralfate 1 GM TABLET PO SCH ×4 (09:14→21:28)
[2021-02-07] MEDS: Magnesium Oxide 400 MG TABLET PO SCH ×2 (09:14→21:28)
[2021-02-07] MEDS: Acetaminophen 325 MG TABLET PO PRN (09:14)
[2021-02-07] MEDS: *HR* HYDROcodone/Acet 5/325 mg TABLET PO PRN (21:28)
[2021-02-07] MEDS: Mirtazapine 15 MG TABLET PO SCH (21:29)
[2021-02-08] MEDS: *HR* Enoxaparin 30 MG/0.3 ML SYRINGE SQ SCH (06:16)
[2021-02-08] MEDS: Magnesium Oxide 400 MG TABLET PO SCH ×2 (09:16→22:36)
[2021-02-08] MEDS: Aspirin Enteric Coated 81 MG Tablet PO SCH (09:17)
[2021-02-08] MEDS: Sucralfate 1 GM TABLET PO SCH ×4 (09:17→22:36)
[2021-02-08] MEDS: clonazePAM 0.5 MG TABLET PO PRN (09:21)
[2021-02-08] MEDS: Cyanocobalamin (B-12) 1,000 MCG TABLET PO SCH (09:28)
[2021-02-08] MEDS: *HR* HYDROcodone/Acet 5/325 mg TABLET PO PRN (11:06)
[2021-02-08] MEDS: Acetaminophen 325 MG TABLET PO PRN (16:50)
[2021-02-08] MEDS: Mirtazapine 15 MG TABLET PO SCH (22:37)
[2021-02-09] MEDS: *HR* Enoxaparin 30 MG/0.3 ML SYRINGE SQ SCH (05:28)
[2021-02-09 06:09] LABS: Basophils % 0.6 %; Eosinophils # 0.2 K/mcL (0.0-0.6); Eosinophils % 5.1 %; Hemoglobin 8.5 g/dL (11.5-15.4); Lymphocytes # 0.8 K/mcL (0.6-4.6); Lymphocytes % 24.8 %; Mean Corpuscular HGB Conc 31.5 g/dL (31.6-35.5); Mean Corpuscular Hemoglobin 29.3 pg (28.0-33.3); Mean Corpuscular Volume 93.1 fL (83.0-100.0); Mean Platelet Volume 10.5 fL (9.4-12.4); Monocytes # 0.4 K/mcL (0.0-1.3); Monocytes % 11.8 %; Neutrophils # 1.8 K/mcL (1.6-8.9); Platelet Count 194 K/mcL (140-400); Red Cell Distribution Width 13.3 % (11.5-14.5); Segmented Neutrophils % 57.7 %; White Blood Count 3.1 K/mcL (4.3-11.1)
[2021-02-09 06:34] LABS: Potassium 4.1 mEq/L (3.5-5.1)
[2021-02-09] MEDS: Aspirin Enteric Coated 81 MG Tablet PO SCH (08:03)
[2021-02-09] MEDS: Sucralfate 1 GM TABLET PO SCH ×4 (08:04→20:44)
[2021-02-09] MEDS: Magnesium Oxide 400 MG TABLET PO SCH ×2 (08:04→20:44)
[2021-02-09] MEDS: *HR* HYDROcodone/Acet 5/325 mg TABLET PO PRN ×3 (08:11→20:44)
[2021-02-09] MEDS: clonazePAM 0.5 MG TABLET PO PRN ×2 (08:11→20:45)
[2021-02-09] MEDS: Acetaminophen 325 MG TABLET PO PRN (16:34)
[2021-02-09] MEDS: Mirtazapine 15 MG TABLET PO SCH (20:45)
[2021-02-10] MEDS: Sucralfate 1 GM TABLET PO SCH ×4 (06:04→20:10)
[2021-02-10] MEDS: *HR* Enoxaparin 30 MG/0.3 ML SYRINGE SQ SCH (06:04)
[2021-02-10 09:57] LABS: % Iron Saturation 14 % (15-50); Iron 52 mcg/dL (50-170); Transferrin 264 mg/dL (203-362)
[2021-02-10 10:23] LABS: Folate 8.8 ng/mL (3.0-16.0)
[2021-02-10] MEDS: Aspirin Enteric Coated 81 MG Tablet PO SCH (10:35)
[2021-02-10] MEDS: Magnesium Oxide 400 MG TABLET PO SCH ×2 (10:36→20:10)
[2021-02-10] MEDS: Acetaminophen 325 MG TABLET PO PRN ×2 (10:50→17:57)
[2021-02-10] MEDS: clonazePAM 0.5 MG TABLET PO PRN ×2 (10:50→20:10)
[2021-02-10] MEDS: Mirtazapine 15 MG TABLET PO SCH (20:10)
[2021-02-10] MEDS: *HR* HYDROcodone/Acet 5/325 mg TABLET PO PRN (20:11)
[2021-02-11] MEDS: *HR* Enoxaparin 30 MG/0.3 ML SYRINGE SQ SCH (06:19)
[2021-02-11] MEDS: Sucralfate 1 GM TABLET PO SCH ×4 (09:48→20:27)
[2021-02-11] MEDS: clonazePAM 0.5 MG TABLET PO PRN ×2 (09:48→20:26)
[2021-02-11] MEDS: Acetaminophen 325 MG TABLET PO PRN (09:48)
[2021-02-11] MEDS: Aspirin Enteric Coated 81 MG Tablet PO SCH (09:48)
[2021-02-11] MEDS: *HR* HYDROcodone/Acet 5/325 mg TABLET PO PRN ×2 (09:56→20:27)
[2021-02-11] MEDS: Magnesium Oxide 400 MG TABLET PO SCH ×2 (09:56→20:26)
[2021-02-11] MEDS: Mirtazapine 15 MG TABLET PO SCH (20:27)
[2021-02-12] MEDS: *HR* Enoxaparin 30 MG/0.3 ML SYRINGE SQ SCH (06:04)
[2021-02-12] MEDS: Magnesium Oxide 400 MG TABLET PO SCH ×2 (08:08→20:05)
[2021-02-12] MEDS: Aspirin Enteric Coated 81 MG Tablet PO SCH (08:08)
[2021-02-12] MEDS: Sucralfate 1 GM TABLET PO SCH ×4 (08:09→20:05)
[2021-02-12] MEDS: clonazePAM 0.5 MG TABLET PO PRN (08:09)
[2021-02-12] MEDS: *HR* HYDROcodone/Acet 5/325 mg TABLET PO PRN (12:02)
[2021-02-12] MEDS: Mirtazapine 15 MG TABLET PO SCH (20:05)
[2021-02-12] MEDS: Acetaminophen 325 MG TABLET PO PRN (20:05)
[2021-02-13] MEDS: *HR* Enoxaparin 30 MG/0.3 ML SYRINGE SQ SCH (05:11)
[2021-02-13] MEDS: Magnesium Oxide 400 MG TABLET PO SCH ×2 (08:03→19:31)
[2021-02-13] MEDS: Aspirin Enteric Coated 81 MG Tablet PO SCH (08:04)
[2021-02-13] MEDS: Sucralfate 1 GM TABLET PO SCH ×4 (08:04→19:31)
[2021-02-13] MEDS: clonazePAM 0.5 MG TABLET PO PRN (08:12)
[2021-02-13] MEDS: *HR* HYDROcodone/Acet 5/325 mg TABLET PO PRN (08:12)
[2021-02-13] MEDS: Mirtazapine 15 MG TABLET PO SCH (19:31)
[2021-02-13] MEDS: Acetaminophen 325 MG TABLET PO PRN (19:31)
[2021-02-14] MEDS: *HR* Enoxaparin 30 MG/0.3 ML SYRINGE SQ SCH (05:02)
[2021-02-14] MEDS: Acetaminophen 325 MG TABLET PO PRN ×2 (05:03→13:42)
[2021-02-14 06:44] VITALS: BP 101/60
[2021-02-14] MEDS: Magnesium Oxide 400 MG TABLET PO SCH (08:21)
[2021-02-14] MEDS: Sucralfate 1 GM TABLET PO SCH ×2 (08:21→12:10)
[2021-02-14] MEDS: Aspirin Enteric Coated 81 MG Tablet PO SCH (08:23)
[2021-02-14] MEDS: clonazePAM 0.5 MG TABLET PO PRN (13:42)
[2021-02-14] MEDS: Ondansetron ODT 4 MG TAB.RAPDIS SL PRN (13:43)
== END 2021-02-14 16:43 | disposition home health service (06) | DRG 560 ==
LOC: INPPIK 01-21 13:42
PROVIDERS: ADMIT Family Medicine; ATTEND Family Medicine

== ENCOUNTER 2021-03-05 19:46 | Inpatient (IN) ==
[2021-03-05] MEDS ORDERED: 0.9 % Sodium Chloride 1,000 ML IVC SCH (20:00)
[2021-03-05 20:36] LABS: Calcium 12.8 mg/dL (8.6-10.3); Potassium 4.1 mEq/L (3.5-5.1)
[2021-03-05] MEDS ORDERED: Naloxone 0.4 MG/ML INJ IVP PRN (22:28)
[2021-03-05] MEDS ORDERED: Nitroglycerin 0.4 MG TAB.SUBL SL PRN (22:28)
[2021-03-05] MEDS ORDERED: Cyanocobalamin (B-12) 1,000 MCG TABLET PO SCH (22:45)
[2021-03-06] MEDS: Sucralfate 1 GM TABLET PO SCH ×5 (00:08→22:40)
[2021-03-06] MEDS: 0.9 % Sodium Chloride 1,000 ML IVC SCH ×4 (02:59→15:55)
[2021-03-06 04:45] LABS: Hemoglobin 8.9 g/dL (11.5-15.4); Mean Corpuscular Hemoglobin 29.5 pg (28.0-33.3); Mean Corpuscular Volume 89.4 fL (83.0-100.0); Mean Platelet Volume 9.9 fL (9.4-12.4); Platelet Count 158 K/mcL (140-400); Red Blood Count 3.02 M/mcL (3.82-4.97); Red Cell Distribution Width 12.9 % (11.5-14.5); White Blood Count 3.2 K/mcL (4.3-11.1)
[2021-03-06 04:51] LABS: VBG Ionized Calcium 1.57 mmol/L (1.15-1.35)
[2021-03-06 05:10] LABS: BUN/Creatinine Ratio 21 (6-26); Blood Urea Nitrogen 22 mg/dL (8-23); Calcium 11.1 mg/dL (8.6-10.3); Carbon Dioxide 26 mEq/L (23-29); Chloride 108 mEq/L (98-107); Glucose 79 mg/dL (70-105); Magnesium 1.2 mg/dL (1.6-2.6); Osmolality,Calculated 290 (280-300); Phosphorous 1.9 mg/dL (2.7-4.5); Potassium 3.8 mEq/L (3.5-5.1); Sodium 139 mEq/L (136-145); eGFR For African Americans > 60 (> 60); eGFR For Non-African Americans 52 (> 60)
[2021-03-06] MEDS: clonazePAM 0.5 MG TABLET PO SCH ×2 (09:02→22:41)
[2021-03-06] MEDS: Magnesium Oxide 400 MG TABLET PO SCH ×2 (09:02→22:40)
[2021-03-06] MEDS: Aspirin Enteric Coated 81 MG Tablet PO SCH (09:02)
[2021-03-06 13:22] LABS: Calcium 10.2 mg/dL (8.6-10.3); Potassium 5.3 mEq/L (3.5-5.1)
[2021-03-06] MEDS: Mirtazapine 15 MG TABLET PO SCH (22:40)
[2021-03-06] MEDS: Ondansetron ODT 4 MG TAB.RAPDIS SL PRN (22:40)
[2021-03-06] MEDS: ARIPiprazole 5 MG TABLET PO SCH (22:41)
[2021-03-07] MEDS: 0.9 % Sodium Chloride 1,000 ML IVC SCH ×2 (03:09→17:05)
[2021-03-07 06:26] LABS: Basophils % 0.6 %; Eosinophils # 0.2 K/mcL (0.0-0.6); Eosinophils % 6.8 %; Hematocrit 26.3 % (35.3-44.9); Hemoglobin 8.6 g/dL (11.5-15.4); Lymphocytes # 1.1 K/mcL (0.6-4.6); Lymphocytes % 31.3 %; Mean Corpuscular HGB Conc 32.7 g/dL (31.6-35.5); Mean Corpuscular Hemoglobin 29.7 pg (28.0-33.3); Mean Corpuscular Volume 90.7 fL (83.0-100.0); Mean Platelet Volume 10.7 fL (9.4-12.4); Monocytes # 0.4 K/mcL (0.0-1.3); Monocytes % 11.6 %; Neutrophils # 1.7 K/mcL (1.6-8.9); Platelet Count 125 K/mcL (140-400); Segmented Neutrophils % 49.7 %; White Blood Count 3.4 K/mcL (4.3-11.1)
[2021-03-07 06:49] LABS: BUN/Creatinine Ratio 16 (6-26); Blood Urea Nitrogen 14 mg/dL (8-23); Calcium 9.4 mg/dL (8.6-10.3); Carbon Dioxide 25 mEq/L (23-29); Chloride 111 mEq/L (98-107); Glucose 78 mg/dL (70-105); Magnesium 1.4 mg/dL (1.6-2.6); Osmolality,Calculated 291 (280-300); Sodium 141 mEq/L (136-145); eGFR For African Americans > 60 (> 60); eGFR For Non-African Americans > 60 (> 60)
[2021-03-07 06:50] LABS: Platelet Estimate Decreased (Normal)
[2021-03-07] MEDS: Sucralfate 1 GM TABLET PO SCH ×4 (08:08→20:51)
[2021-03-07] MEDS: clonazePAM 0.5 MG TABLET PO SCH ×2 (08:08→20:51)
[2021-03-07] MEDS: Aspirin Enteric Coated 81 MG Tablet PO SCH (08:08)
[2021-03-07] MEDS: Magnesium Oxide 400 MG TABLET PO SCH ×2 (08:09→20:51)
[2021-03-07] MEDS: ARIPiprazole 5 MG TABLET PO SCH (20:51)
[2021-03-07] MEDS: Mirtazapine 15 MG TABLET PO SCH (20:51)
[2021-03-07] MEDS: Ondansetron ODT 4 MG TAB.RAPDIS SL PRN (21:52)
[2021-03-08] MEDS: 0.9 % Sodium Chloride 1,000 ML IVC SCH (06:29)
[2021-03-08] MEDS: Sucralfate 1 GM TABLET PO SCH ×4 (06:29→21:34)
[2021-03-08 08:00] LABS: Basophils % 0.4 %; Eosinophils # 0.2 K/mcL (0.0-0.6); Eosinophils % 3.8 %; Hematocrit 26.4 % (35.3-44.9); Hemoglobin 8.5 g/dL (11.5-15.4); Immature Granulocytes % 0.4 % (0-4); Lymphocytes # 0.8 K/mcL (0.6-4.6); Lymphocytes % 17.5 %; Mean Corpuscular HGB Conc 32.2 g/dL (31.6-35.5); Mean Corpuscular Volume 90.1 fL (83.0-100.0); Mean Platelet Volume 10.5 fL (9.4-12.4); Monocytes # 0.3 K/mcL (0.0-1.3); Monocytes % 6.5 %; Neutrophils # 3.4 K/mcL (1.6-8.9); Platelet Count 144 K/mcL (140-400); Red Blood Count 2.93 M/mcL (3.82-4.97); Red Cell Distribution Width 12.8 % (11.5-14.5); Segmented Neutrophils % 71.4 %; White Blood Count 4.7 K/mcL (4.3-11.1)
[2021-03-08 08:12] LABS: BUN/Creatinine Ratio 18 (6-26); Blood Urea Nitrogen 14 mg/dL (8-23); Calcium 9.7 mg/dL (8.6-10.3); Carbon Dioxide 27 mEq/L (23-29); Chloride 109 mEq/L (98-107); Glucose 94 mg/dL (70-105); Magnesium 1.5 mg/dL (1.6-2.6); Osmolality,Calculated 290 (280-300); Potassium 4.2 mEq/L (3.5-5.1); Sodium 140 mEq/L (136-145); eGFR For African Americans > 60 (> 60); eGFR For Non-African Americans > 60 (> 60)
[2021-03-08] MEDS: Aspirin Enteric Coated 81 MG Tablet PO SCH (08:43)
[2021-03-08] MEDS: clonazePAM 0.5 MG TABLET PO SCH ×2 (08:43→21:33)
[2021-03-08] MEDS: Acetaminophen 325 MG TABLET PO PRN (08:44)
[2021-03-08] MEDS: Magnesium Oxide 400 MG TABLET PO SCH ×2 (08:44→21:34)
[2021-03-08] MEDS: ARIPiprazole 5 MG TABLET PO SCH (21:34)
[2021-03-08] MEDS: Mirtazapine 15 MG TABLET PO SCH (21:34)
[2021-03-09] MEDS: Sucralfate 1 GM TABLET PO SCH ×3 (05:59→16:55)
[2021-03-09 06:13] LABS: Basophils % 0.4 %; Eosinophils # 0.2 K/mcL (0.0-0.6); Eosinophils % 3.9 %; Hematocrit 31.1 % (35.3-44.9); Hemoglobin 10.2 g/dL (11.5-15.4); Immature Granulocytes % 0.2 % (0-4); Lymphocytes # 1.1 K/mcL (0.6-4.6); Lymphocytes % 20.7 %; Mean Corpuscular HGB Conc 32.8 g/dL (31.6-35.5); Mean Corpuscular Hemoglobin 29.4 pg (28.0-33.3); Mean Corpuscular Volume 89.6 fL (83.0-100.0); Mean Platelet Volume 10.6 fL (9.4-12.4); Monocytes # 0.3 K/mcL (0.0-1.3); Monocytes % 5.7 %; Neutrophils # 3.8 K/mcL (1.6-8.9); Platelet Count 170 K/mcL (140-400); Red Blood Count 3.47 M/mcL (3.82-4.97); Red Cell Distribution Width 12.9 % (11.5-14.5); Segmented Neutrophils % 69.1 %; White Blood Count 5.5 K/mcL (4.3-11.1)
[2021-03-09 06:37] LABS: BUN/Creatinine Ratio 21 (6-26); Blood Urea Nitrogen 18 mg/dL (8-23); Carbon Dioxide 28 mEq/L (23-29); Chloride 107 mEq/L (98-107); Glucose 105 mg/dL (70-105); Osmolality,Calculated 296 (280-300); Sodium 142 mEq/L (136-145); eGFR For African Americans > 60 (> 60); eGFR For Non-African Americans > 60 (> 60)
[2021-03-09] MEDS: Aspirin Enteric Coated 81 MG Tablet PO SCH (08:31)
[2021-03-09] MEDS: Acetaminophen 325 MG TABLET PO PRN ×2 (08:32→17:01)
[2021-03-09] MEDS: Magnesium Oxide 400 MG TABLET PO SCH (08:32)
[2021-03-09] MEDS: clonazePAM 0.5 MG TABLET PO SCH (08:32)
[2021-03-09 19:14] VITALS: BP 95/51
== END 2021-03-09 19:47 | disposition other institution (70) | DRG 641 ==
LOC: INPPIK 19:46 → EMEROOPIK 19:46 → INPPIK 21:56
PROVIDERS: ADMIT Family Medicine; ATTEND Family Medicine

== ENCOUNTER 2021-03-09 15:26 | Inpatient (IN) ==
[2021-03-09] MEDS ORDERED: Nitroglycerin 0.4 MG TAB.SUBL SL PRN (16:31)
[2021-03-09] MEDS: Cyanocobalamin (B-12) 1,000 MCG TABLET PO SCH (21:47)
[2021-03-09] MEDS: clonazePAM 0.5 MG TABLET PO SCH (22:28)
[2021-03-09] MEDS: ARIPiprazole 5 MG TABLET PO SCH (22:28)
[2021-03-09] MEDS: Magnesium Oxide 400 MG TABLET PO SCH (22:28)
[2021-03-09] MEDS: Mirtazapine 15 MG TABLET PO SCH (22:28)
[2021-03-09] MEDS: Sucralfate 1 GM TABLET PO SCH (22:29)
[2021-03-10] MEDS ORDERED: *HR* Enoxaparin 40 MG/0.4 ML SYRINGE SQ SCH ×2 (06:00→07:00)
[2021-03-10 06:59] LABS: Basophils % 0.4 %; Eosinophils # 0.2 K/mcL (0.0-0.6); Eosinophils % 3.8 %; Hematocrit 29.1 % (35.3-44.9); Hemoglobin 9.4 g/dL (11.5-15.4); Immature Granulocytes % 0.2 % (0-4); Lymphocytes # 0.8 K/mcL (0.6-4.6); Lymphocytes % 16.7 %; Mean Corpuscular HGB Conc 32.3 g/dL (31.6-35.5); Mean Corpuscular Hemoglobin 29.2 pg (28.0-33.3); Mean Corpuscular Volume 90.4 fL (83.0-100.0); Mean Platelet Volume 10.8 fL (9.4-12.4); Monocytes # 0.3 K/mcL (0.0-1.3); Monocytes % 6.9 %; Neutrophils # 3.2 K/mcL (1.6-8.9); Platelet Count 152 K/mcL (140-400); Red Blood Count 3.22 M/mcL (3.82-4.97); Red Cell Distribution Width 13.1 % (11.5-14.5); White Blood Count 4.5 K/mcL (4.3-11.1)
[2021-03-10 07:22] LABS: Calcium 11.3 mg/dL (8.6-10.3); Potassium 3.9 mEq/L (3.5-5.1)
[2021-03-10] MEDS: Sucralfate 1 GM TABLET PO SCH ×4 (08:54→21:49)
[2021-03-10] MEDS: clonazePAM 0.5 MG TABLET PO SCH ×2 (08:54→21:49)
[2021-03-10] MEDS: Magnesium Oxide 400 MG TABLET PO SCH ×2 (08:55→21:50)
[2021-03-10] MEDS: Aspirin Enteric Coated 81 MG Tablet PO SCH (08:55)
[2021-03-10] MEDS: Acetaminophen 325 MG TABLET PO PRN (09:01)
[2021-03-10] MEDS: Mirtazapine 15 MG TABLET PO SCH (21:48)
[2021-03-10] MEDS: ARIPiprazole 5 MG TABLET PO SCH (21:50)
[2021-03-11] MEDS: *HR* Enoxaparin 30 MG/0.3 ML SYRINGE SQ SCH (05:17)
[2021-03-11] MEDS: Acetaminophen 325 MG TABLET PO PRN ×2 (07:38→21:13)
[2021-03-11] MEDS: Sucralfate 1 GM TABLET PO SCH ×4 (07:38→21:14)
[2021-03-11] MEDS: Aspirin Enteric Coated 81 MG Tablet PO SCH (07:38)
[2021-03-11] MEDS: Magnesium Oxide 400 MG TABLET PO SCH ×2 (07:39→21:15)
[2021-03-11] MEDS: clonazePAM 0.5 MG TABLET PO SCH ×2 (07:39→21:14)
[2021-03-11] MEDS: ARIPiprazole 5 MG TABLET PO SCH (21:14)
[2021-03-11] MEDS: Mirtazapine 15 MG TABLET PO SCH (21:15)
[2021-03-12] MEDS: *HR* Enoxaparin 30 MG/0.3 ML SYRINGE SQ SCH (05:41)
[2021-03-12] MEDS: Magnesium Oxide 400 MG TABLET PO SCH ×2 (08:03→21:07)
[2021-03-12] MEDS: Sucralfate 1 GM TABLET PO SCH ×4 (08:03→21:08)
[2021-03-12] MEDS: Aspirin Enteric Coated 81 MG Tablet PO SCH (08:04)
[2021-03-12] MEDS: clonazePAM 0.5 MG TABLET PO SCH ×2 (08:04→21:07)
[2021-03-12] MEDS: Mirtazapine 15 MG TABLET PO SCH (21:08)
[2021-03-12] MEDS: ARIPiprazole 5 MG TABLET PO SCH (21:08)
[2021-03-13] MEDS: *HR* Enoxaparin 30 MG/0.3 ML SYRINGE SQ SCH (05:23)
[2021-03-13] MEDS: Aspirin Enteric Coated 81 MG Tablet PO SCH (07:47)
[2021-03-13] MEDS: clonazePAM 0.5 MG TABLET PO SCH ×2 (07:48→21:29)
[2021-03-13] MEDS: Sucralfate 1 GM TABLET PO SCH ×4 (07:48→21:30)
[2021-03-13] MEDS: Magnesium Oxide 400 MG TABLET PO SCH ×2 (07:48→21:30)
[2021-03-13] MEDS: Mirtazapine 15 MG TABLET PO SCH (21:30)
[2021-03-13] MEDS: ARIPiprazole 5 MG TABLET PO SCH (21:30)
[2021-03-14] MEDS: *HR* Enoxaparin 30 MG/0.3 ML SYRINGE SQ SCH (06:06)
[2021-03-14 08:31] LABS: Hematocrit 29.2 % (35.3-44.9); Hemoglobin 9.2 g/dL (11.5-15.4); Mean Corpuscular HGB Conc 31.5 g/dL (31.6-35.5); Mean Corpuscular Hemoglobin 28.8 pg (28.0-33.3); Mean Corpuscular Volume 91.5 fL (83.0-100.0); Platelet Count 177 K/mcL (140-400); Red Blood Count 3.19 M/mcL (3.82-4.97); Red Cell Distribution Width 13.1 % (11.5-14.5); White Blood Count 3.4 K/mcL (4.3-11.1)
[2021-03-14 08:44] LABS: Magnesium 2.1 mg/dL (1.6-2.6)
[2021-03-14] MEDS: Aspirin Enteric Coated 81 MG Tablet PO SCH (10:07)
[2021-03-14] MEDS: clonazePAM 0.5 MG TABLET PO SCH ×2 (10:07→21:35)
[2021-03-14] MEDS: Sucralfate 1 GM TABLET PO SCH ×4 (10:07→21:35)
[2021-03-14] MEDS: Magnesium Oxide 400 MG TABLET PO SCH ×2 (10:07→21:35)
[2021-03-14] MEDS: Acetaminophen 325 MG TABLET PO PRN (10:16)
[2021-03-14] MEDS: Mirtazapine 15 MG TABLET PO SCH (21:35)
[2021-03-14] MEDS: ARIPiprazole 5 MG TABLET PO SCH (21:35)
[2021-03-15] MEDS: *HR* Enoxaparin 30 MG/0.3 ML SYRINGE SQ SCH (06:11)
[2021-03-15] MEDS: Magnesium Oxide 400 MG TABLET PO SCH ×2 (10:17→20:18)
[2021-03-15] MEDS: Acetaminophen 325 MG TABLET PO PRN ×2 (10:17→20:23)
[2021-03-15] MEDS: Sucralfate 1 GM TABLET PO SCH ×3 (10:17→16:54)
[2021-03-15] MEDS: Aspirin Enteric Coated 81 MG Tablet PO SCH (10:17)
[2021-03-15] MEDS: clonazePAM 0.5 MG TABLET PO SCH ×2 (10:18→20:17)
[2021-03-15] MEDS: ARIPiprazole 5 MG TABLET PO SCH (20:17)
[2021-03-15] MEDS: Mirtazapine 15 MG TABLET PO SCH (20:18)
[2021-03-16] MEDS: Sucralfate 1 GM TABLET PO SCH ×5 (01:40→20:50)
[2021-03-16] MEDS: *HR* Enoxaparin 30 MG/0.3 ML SYRINGE SQ SCH (06:29)
[2021-03-16] MEDS: clonazePAM 0.5 MG TABLET PO SCH ×2 (08:15→20:47)
[2021-03-16] MEDS: Aspirin Enteric Coated 81 MG Tablet PO SCH (08:15)
[2021-03-16] MEDS: Magnesium Oxide 400 MG TABLET PO SCH ×2 (08:15→20:48)
[2021-03-16] MEDS: Acetaminophen 325 MG TABLET PO PRN ×2 (08:15→20:50)
[2021-03-16] MEDS: Cyanocobalamin (B-12) 1,000 MCG TABLET PO SCH (16:28)
[2021-03-16] MEDS: ARIPiprazole 5 MG TABLET PO SCH (20:47)
[2021-03-16] MEDS: Mirtazapine 15 MG TABLET PO SCH (20:48)
[2021-03-17] MEDS: *HR* Enoxaparin 30 MG/0.3 ML SYRINGE SQ SCH (05:34)
[2021-03-17] MEDS: Aspirin Enteric Coated 81 MG Tablet PO SCH (08:59)
[2021-03-17] MEDS: clonazePAM 0.5 MG TABLET PO SCH ×2 (08:59→21:09)
[2021-03-17] MEDS: Acetaminophen 325 MG TABLET PO PRN ×2 (08:59→21:10)
[2021-03-17] MEDS: Magnesium Oxide 400 MG TABLET PO SCH ×2 (09:00→21:10)
[2021-03-17] MEDS: Sucralfate 1 GM TABLET PO SCH ×4 (09:00→21:13)
[2021-03-17] MEDS: ARIPiprazole 5 MG TABLET PO SCH (21:10)
[2021-03-17] MEDS: Mirtazapine 15 MG TABLET PO SCH (21:10)
[2021-03-18] MEDS: *HR* Enoxaparin 30 MG/0.3 ML SYRINGE SQ SCH (05:26)
[2021-03-18] MEDS: Aspirin Enteric Coated 81 MG Tablet PO SCH (07:24)
[2021-03-18] MEDS: Acetaminophen 325 MG TABLET PO PRN ×2 (07:24→20:22)
[2021-03-18] MEDS: Sucralfate 1 GM TABLET PO SCH ×4 (07:24→20:23)
[2021-03-18] MEDS: Magnesium Oxide 400 MG TABLET PO SCH ×2 (07:24→20:23)
[2021-03-18] MEDS: clonazePAM 0.5 MG TABLET PO SCH ×2 (07:25→20:22)
[2021-03-18] MEDS: ARIPiprazole 5 MG TABLET PO SCH (20:22)
[2021-03-18] MEDS: Mirtazapine 15 MG TABLET PO SCH (20:23)
[2021-03-19] MEDS: *HR* Enoxaparin 30 MG/0.3 ML SYRINGE SQ SCH (05:47)
[2021-03-19] MEDS: Aspirin Enteric Coated 81 MG Tablet PO SCH (08:11)
[2021-03-19] MEDS: clonazePAM 0.5 MG TABLET PO SCH ×2 (08:12→21:45)
[2021-03-19] MEDS: Magnesium Oxide 400 MG TABLET PO SCH ×2 (08:12→21:46)
[2021-03-19] MEDS: Sucralfate 1 GM TABLET PO SCH ×4 (08:12→21:45)
[2021-03-19] MEDS: Acetaminophen 325 MG TABLET PO PRN (21:44)
[2021-03-19] MEDS: Mirtazapine 15 MG TABLET PO SCH (21:45)
[2021-03-19] MEDS: ARIPiprazole 5 MG TABLET PO SCH (21:45)
[2021-03-20] MEDS: *HR* Enoxaparin 30 MG/0.3 ML SYRINGE SQ SCH (05:56)
[2021-03-20] MEDS: Acetaminophen 325 MG TABLET PO PRN (10:07)
[2021-03-20] MEDS: Aspirin Enteric Coated 81 MG Tablet PO SCH (10:07)
[2021-03-20] MEDS: Sucralfate 1 GM TABLET PO SCH ×4 (10:07→21:45)
[2021-03-20] MEDS: clonazePAM 0.5 MG TABLET PO SCH ×2 (10:08→20:28)
[2021-03-20] MEDS: Magnesium Oxide 400 MG TABLET PO SCH ×2 (10:08→20:28)
[2021-03-20] MEDS: ARIPiprazole 5 MG TABLET PO SCH (20:27)
[2021-03-20] MEDS: Mirtazapine 15 MG TABLET PO SCH (20:27)
[2021-03-21] MEDS: *HR* Enoxaparin 30 MG/0.3 ML SYRINGE SQ SCH (06:18)
[2021-03-21] MEDS: Magnesium Oxide 400 MG TABLET PO SCH ×2 (08:30→21:01)
[2021-03-21] MEDS: clonazePAM 0.5 MG TABLET PO SCH ×2 (08:30→21:02)
[2021-03-21] MEDS: Sucralfate 1 GM TABLET PO SCH ×4 (08:30→21:02)
[2021-03-21] MEDS: Aspirin Enteric Coated 81 MG Tablet PO SCH (08:30)
[2021-03-21] MEDS: Acetaminophen 325 MG TABLET PO PRN ×2 (08:37→21:05)
[2021-03-21] MEDS: Mirtazapine 15 MG TABLET PO SCH (21:01)
[2021-03-21] MEDS: ARIPiprazole 5 MG TABLET PO SCH (21:02)
[2021-03-22] MEDS: *HR* Enoxaparin 30 MG/0.3 ML SYRINGE SQ SCH (06:12)
[2021-03-22 06:57] LABS: Basophils % 0.3 %; Eosinophils # 0.1 K/mcL (0.0-0.6); Eosinophils % 4.4 %; Hematocrit 27.3 % (35.3-44.9); Hemoglobin 8.7 g/dL (11.5-15.4); Lymphocytes # 0.8 K/mcL (0.6-4.6); Mean Corpuscular HGB Conc 31.9 g/dL (31.6-35.5); Mean Corpuscular Hemoglobin 29.2 pg (28.0-33.3); Mean Corpuscular Volume 91.6 fL (83.0-100.0); Mean Platelet Volume 10.7 fL (9.4-12.4); Monocytes # 0.3 K/mcL (0.0-1.3); Monocytes % 10.7 %; Neutrophils # 1.9 K/mcL (1.6-8.9); Platelet Count 173 K/mcL (140-400); Red Blood Count 2.98 M/mcL (3.82-4.97); Segmented Neutrophils % 58.6 %; White Blood Count 3.2 K/mcL (4.3-11.1)
[2021-03-22 07:21] LABS: Calcium 10.6 mg/dL (8.6-10.3); Potassium 4.1 mEq/L (3.5-5.1)
[2021-03-22 07:22] VITALS: BP 121/69
[2021-03-22] MEDS: Sucralfate 1 GM TABLET PO SCH ×2 (09:51→15:44)
[2021-03-22] MEDS: Aspirin Enteric Coated 81 MG Tablet PO SCH (09:51)
[2021-03-22] MEDS: Magnesium Oxide 400 MG TABLET PO SCH (09:51)
[2021-03-22] MEDS: Acetaminophen 325 MG TABLET PO PRN (09:52)
[2021-03-22] MEDS: clonazePAM 0.5 MG TABLET PO SCH (09:52)
== END 2021-03-22 16:30 | disposition home health service (06) | DRG 945 ==
LOC: INPPIK 20:20
PROVIDERS: ADMIT Family Medicine; ATTEND Family Medicine

== ENCOUNTER 2021-04-20 13:31 | Inpatient (IN) ==
[2021-04-20] MEDS ORDERED: 0.9 % Sodium Chloride 1,000 ML IVC ONE (14:03)
[2021-04-20] MEDS ORDERED: Scopolamine Patch 1.5 MG PATCH.TD72 TD STA (14:03)
[2021-04-20 14:37] LABS: Basophils % 0.4 %; Eosinophils # 0.2 K/mcL (0.0-0.6); Eosinophils % 3.5 %; Hematocrit 24.6 % (35.3-44.9); Hemoglobin 8.1 g/dL (11.5-15.4); Immature Granulocytes % 0.7 % (0-4); Lymphocytes # 0.6 K/mcL (0.6-4.6); Lymphocytes % 10.1 %; Mean Corpuscular HGB Conc 32.9 g/dL (31.6-35.5); Mean Corpuscular Hemoglobin 28.5 pg (28.0-33.3); Mean Corpuscular Volume 86.6 fL (83.0-100.0); Mean Platelet Volume 9.6 fL (9.4-12.4); Monocytes # 0.5 K/mcL (0.0-1.3); Monocytes % 7.9 %; Neutrophils # 4.4 K/mcL (1.6-8.9); Platelet Count 240 K/mcL (140-400); Red Blood Count 2.84 M/mcL (3.82-4.97); Red Cell Distribution Width 12.8 % (11.5-14.5); Segmented Neutrophils % 77.4 %; White Blood Count 5.7 K/mcL (4.3-11.1)
[2021-04-20 14:55] LABS: Alanine Aminotransferase 6 Units/L (7-52); Albumin/Globulin Ratio 1.8 (1.1-2.2); Alkaline Phosphatase 45 Units/L (34-104); Aspartate Amino Transferase 10 Units/L (13-39); BUN/Creatinine Ratio 24 (6-26); Bilirubin,Indirect 0.2 mg/dL (0.0-1.0); Bilirubin,Total 0.2 mg/dL (0.3-1.0); Blood Urea Nitrogen 29 mg/dL (8-23); Calcium 12.7 mg/dL (8.6-10.3); Carbon Dioxide 27 mEq/L (23-29); Chloride 103 mEq/L (98-107); Globulin 2.2 g/dL (2.4-3.5); Glucose 110 mg/dL (70-105); Lipase 129 Units/L (11-82); Magnesium 1.6 mg/dL (1.6-2.6); Osmolality,Calculated 292 (280-300); Phosphorous 1.9 mg/dL (2.7-4.5); Potassium 4.1 mEq/L (3.5-5.1); Sodium 138 mEq/L (136-145); Total Protein 6.2 g/dL (6.4-8.9); Troponin I < 0.03 ng/mL (< 0.04); eGFR For African Americans 52 (> 60); eGFR For Non-African Americans 43 (> 60)
[2021-04-20 14:59] LABS: Bilirubin,Urine Negative (Negative); Blood,Urine Negative (Negative); Clarity,Urine Slightly Cloudy (Clear); Color,Urine Yellow (Yellow); Glucose,Urine (UA) Normal (Normal); Ketones,Urine Trace mg/dL (Negative); Leukocyte Esterase,Urine Small (Negative); Nitrite,Urine Negative (Negative); Protein,Urine Trace mg/dL (Neg-Trace); Urobilinogen,Urine Normal (Normal)
[2021-04-20 15:05] LABS: Hyaline Casts,Urine Few per lpf (None Seen)
[2021-04-20 15:06] LABS: Amorphous Sediment,Urine Moderate per hpf (None-Few); Bacteria,Urine Many per hpf (None-Few); Mucus,Urine Few per lpf (None-Few); WBC,Urine 15-30 per hpf (0-3)
[2021-04-20] MEDS ORDERED: Mag Hydrox/Al Hydrox/Simeth 30 ML UDC PO PRN (15:33)
[2021-04-20] MEDS ORDERED: Ondansetron 4 MG/2 ML VIAL IVP PRN (15:33)
[2021-04-20] MEDS ORDERED: MOM Conc 10 ML UD.LIQ PO PRN (15:33)
[2021-04-20] MEDS ORDERED: Naloxone 0.4 MG/ML INJ IVP PRN (15:33)
[2021-04-20] MEDS ORDERED: Acetaminophen 325 MG TABLET PO PRN (15:33)
[2021-04-20] MEDS ORDERED: Ipratropium/Albuterol Neb 3 ML IH PRN (16:31)
[2021-04-20] MEDS: cefTRIAXone 2,000 MG in 0.9 % Sodium Chloride Mini Bag 100 ML IVPB SCH (18:54)
[2021-04-20] MEDS: Sucralfate 1 GM TABLET PO SCH ×2 (18:54→22:35)
[2021-04-20] MEDS: 0.9 % Sodium Chloride 1,000 ML IVC SCH (18:55)
[2021-04-20] MEDS: clonazePAM 0.5 MG TABLET PO SCH (20:21)
[2021-04-20] MEDS: ARIPiprazole 5 MG TABLET PO SCH (20:21)
[2021-04-20] MEDS: Magnesium Oxide 400 MG TABLET PO SCH (20:21)
[2021-04-20] MEDS: Mirtazapine 15 MG TABLET PO SCH (20:22)
[2021-04-21] MEDS ORDERED: *HR* Enoxaparin 40 MG/0.4 ML SYRINGE SQ SCH (06:00)
[2021-04-21 08:07] LABS: Basophils % 0.3 %; Eosinophils # 0.3 K/mcL (0.0-0.6); Eosinophils % 8.5 %; Hematocrit 21.1 % (35.3-44.9); Hemoglobin 6.6 g/dL (11.5-15.4); Immature Granulocytes % 0.3 % (0-4); Lymphocytes # 0.5 K/mcL (0.6-4.6); Lymphocytes % 13.8 %; Mean Corpuscular HGB Conc 31.3 g/dL (31.6-35.5); Mean Corpuscular Hemoglobin 27.8 pg (28.0-33.3); Mean Platelet Volume 9.5 fL (9.4-12.4); Monocytes # 0.3 K/mcL (0.0-1.3); Monocytes % 8.8 %; Neutrophils # 2.3 K/mcL (1.6-8.9); Platelet Count 215 K/mcL (140-400); Red Blood Count 2.37 M/mcL (3.82-4.97); Red Cell Distribution Width 13.1 % (11.5-14.5); Segmented Neutrophils % 68.3 %; White Blood Count 3.4 K/mcL (4.3-11.1)
[2021-04-21] MEDS: 0.9 % Sodium Chloride 1,000 ML IVC SCH (08:18)
[2021-04-21] MEDS: Sucralfate 1 GM TABLET PO SCH ×4 (08:18→22:21)
[2021-04-21] MEDS: Aspirin Enteric Coated 81 MG Tablet PO SCH (08:18)
[2021-04-21 08:19] LABS: Calcium 10.5 mg/dL (8.6-10.3); Phosphorous 1.7 mg/dL (2.7-4.5); Potassium 3.5 mEq/L (3.5-5.1)
[2021-04-21] MEDS: Magnesium Oxide 400 MG TABLET PO SCH ×2 (08:19→20:28)
[2021-04-21] MEDS: clonazePAM 0.5 MG TABLET PO SCH ×2 (08:19→20:28)
[2021-04-21] MEDS ORDERED: 0.9 % Sodium Chloride 250 ML ONE (15:26)
[2021-04-21 20:17] LABS: Hematocrit 25.5 % (35.3-44.9); Hemoglobin 8.4 g/dL (11.5-15.4)
[2021-04-21] MEDS: Mirtazapine 15 MG TABLET PO SCH (20:27)
[2021-04-21] MEDS: ARIPiprazole 5 MG TABLET PO SCH (20:28)
[2021-04-21] MEDS: cefTRIAXone 2,000 MG in 0.9 % Sodium Chloride Mini Bag 100 ML IVPB SCH (20:28)
[2021-04-22] MEDS ORDERED: *HR* Enoxaparin 30 MG/0.3 ML SYRINGE SQ SCH (06:00)
[2021-04-22] MEDS: Magnesium Oxide 400 MG TABLET PO SCH ×2 (07:35→20:11)
[2021-04-22] MEDS: clonazePAM 0.5 MG TABLET PO SCH ×2 (07:35→20:10)
[2021-04-22] MEDS: Sucralfate 1 GM TABLET PO SCH ×4 (07:35→20:13)
[2021-04-22] MEDS: 0.9 % Sodium Chloride 1,000 ML IVC SCH (07:36)
[2021-04-22 07:45] LABS: Basophils % 0.3 %; Eosinophils # 0.3 K/mcL (0.0-0.6); Eosinophils % 7.6 %; Hematocrit 27.2 % (35.3-44.9); Hemoglobin 9.1 g/dL (11.5-15.4); Immature Granulocytes % 0.3 % (0-4); Lymphocytes # 0.5 K/mcL (0.6-4.6); Lymphocytes % 12.5 %; Mean Corpuscular HGB Conc 33.5 g/dL (31.6-35.5); Mean Corpuscular Hemoglobin 29.6 pg (28.0-33.3); Mean Corpuscular Volume 88.6 fL (83.0-100.0); Mean Platelet Volume 9.4 fL (9.4-12.4); Monocytes # 0.3 K/mcL (0.0-1.3); Monocytes % 8.6 %; Neutrophils # 2.7 K/mcL (1.6-8.9); Platelet Count 201 K/mcL (140-400); Red Blood Count 3.07 M/mcL (3.82-4.97); Red Cell Distribution Width 13.1 % (11.5-14.5); Segmented Neutrophils % 70.7 %; White Blood Count 3.8 K/mcL (4.3-11.1)
[2021-04-22 08:08] LABS: Calcium 9.8 mg/dL (8.6-10.3); Potassium 3.6 mEq/L (3.5-5.1)
[2021-04-22] MEDS ORDERED: Cyanocobalamin (B-12) 1,000 MCG TABLET PO SCH (09:00)
[2021-04-22] MEDS: Melatonin 3 MG TABLET PO PRN (20:10)
[2021-04-22] MEDS: ARIPiprazole 5 MG TABLET PO SCH (20:10)
[2021-04-22] MEDS: Mirtazapine 15 MG TABLET PO SCH (20:11)
[2021-04-23 07:12] LABS: Basophils % 0.5 %; Eosinophils # 0.3 K/mcL (0.0-0.6); Eosinophils % 6.8 %; Hematocrit 28.2 % (35.3-44.9); Hemoglobin 9.5 g/dL (11.5-15.4); Immature Granulocytes % 0.3 % (0-4); Lymphocytes # 0.6 K/mcL (0.6-4.6); Lymphocytes % 15.8 %; Mean Corpuscular HGB Conc 33.7 g/dL (31.6-35.5); Mean Corpuscular Hemoglobin 29.4 pg (28.0-33.3); Mean Corpuscular Volume 87.3 fL (83.0-100.0); Mean Platelet Volume 9.8 fL (9.4-12.4); Monocytes # 0.3 K/mcL (0.0-1.3); Monocytes % 8.4 %; Neutrophils # 2.5 K/mcL (1.6-8.9); Platelet Count 217 K/mcL (140-400); Red Blood Count 3.23 M/mcL (3.82-4.97); Red Cell Distribution Width 13.2 % (11.5-14.5); Segmented Neutrophils % 68.2 %; White Blood Count 3.7 K/mcL (4.3-11.1)
[2021-04-23 07:31] LABS: BUN/Creatinine Ratio 17 (6-26); Blood Urea Nitrogen 17 mg/dL (8-23); Calcium 10.5 mg/dL (8.6-10.3); Carbon Dioxide 26 mEq/L (23-29); Chloride 109 mEq/L (98-107); Glucose 89 mg/dL (70-105); Osmolality,Calculated 289 (280-300); Potassium 3.7 mEq/L (3.5-5.1); Sodium 139 mEq/L (136-145); eGFR For African Americans > 60 (> 60); eGFR For Non-African Americans 54 (> 60)
[2021-04-23] MEDS: Sucralfate 1 GM TABLET PO SCH ×4 (08:14→20:07)
[2021-04-23] MEDS: clonazePAM 0.5 MG TABLET PO SCH ×2 (08:14→20:07)
[2021-04-23] MEDS: Magnesium Oxide 400 MG TABLET PO SCH ×2 (08:14→20:06)
[2021-04-23] MEDS: Melatonin 3 MG TABLET PO PRN (20:07)
[2021-04-23] MEDS: Mirtazapine 15 MG TABLET PO SCH (20:07)
[2021-04-23] MEDS: ARIPiprazole 5 MG TABLET PO SCH (20:07)
[2021-04-24] MEDS ORDERED: *HR* Enoxaparin 40 MG/0.4 ML SYRINGE SQ SCH (06:00)
[2021-04-24 07:08] LABS: Basophils % 0.5 %; Eosinophils # 0.3 K/mcL (0.0-0.6); Eosinophils % 6.9 %; Hematocrit 28.3 % (35.3-44.9); Hemoglobin 9.4 g/dL (11.5-15.4); Immature Granulocytes % 0.2 % (0-4); Lymphocytes # 0.6 K/mcL (0.6-4.6); Lymphocytes % 14.9 %; Mean Corpuscular HGB Conc 33.2 g/dL (31.6-35.5); Mean Corpuscular Hemoglobin 29.3 pg (28.0-33.3); Mean Corpuscular Volume 88.2 fL (83.0-100.0); Mean Platelet Volume 10.1 fL (9.4-12.4); Monocytes # 0.3 K/mcL (0.0-1.3); Monocytes % 7.3 %; Platelet Count 199 K/mcL (140-400); Red Blood Count 3.21 M/mcL (3.82-4.97); Red Cell Distribution Width 13.5 % (11.5-14.5); Segmented Neutrophils % 70.2 %; White Blood Count 4.2 K/mcL (4.3-11.1)
[2021-04-24 07:24] LABS: Calcium 11.1 mg/dL (8.6-10.3); Potassium 3.9 mEq/L (3.5-5.1)
[2021-04-24] MEDS: Magnesium Oxide 400 MG TABLET PO SCH (08:12)
[2021-04-24] MEDS: clonazePAM 0.5 MG TABLET PO SCH (08:13)
[2021-04-24] MEDS: Aspirin Enteric Coated 81 MG Tablet PO SCH (08:13)
[2021-04-24] MEDS: Sucralfate 1 GM TABLET PO SCH ×3 (08:13→15:58)
[2021-04-24 09:52] VITALS: BP 100/65
== END 2021-04-24 18:32 | disposition other institution (70) | DRG 641 ==
LOC: EMEROOPIK 13:31 → INPPIK 13:31
PROVIDERS: ADMIT Family Medicine; ATTEND Family Medicine

== ENCOUNTER 2021-04-24 15:24 | Inpatient (IN) ==
[2021-04-24] MEDS ORDERED: Nitroglycerin 0.4 MG TAB.SUBL SL PRN (16:49)
[2021-04-24] MEDS: Mirtazapine 15 MG TABLET PO SCH (21:24)
[2021-04-24] MEDS: ARIPiprazole 5 MG TABLET PO SCH (21:24)
[2021-04-24] MEDS: clonazePAM 0.5 MG TABLET PO SCH (21:24)
[2021-04-24] MEDS: Magnesium Oxide 400 MG TABLET PO SCH (21:24)
[2021-04-24] MEDS: Sucralfate 1 GM TABLET PO SCH (21:25)
[2021-04-25 05:43] LABS: Basophils % 0.2 %; Eosinophils # 0.3 K/mcL (0.0-0.6); Eosinophils % 6.4 %; Hematocrit 28.1 % (35.3-44.9); Hemoglobin 9.2 g/dL (11.5-15.4); Immature Granulocytes % 0.2 % (0-4); Lymphocytes # 0.6 K/mcL (0.6-4.6); Mean Corpuscular HGB Conc 32.7 g/dL (31.6-35.5); Mean Corpuscular Hemoglobin 29.1 pg (28.0-33.3); Mean Corpuscular Volume 88.9 fL (83.0-100.0); Mean Platelet Volume 9.9 fL (9.4-12.4); Monocytes # 0.4 K/mcL (0.0-1.3); Monocytes % 6.8 %; Platelet Count 202 K/mcL (140-400); Red Blood Count 3.16 M/mcL (3.82-4.97); Red Cell Distribution Width 13.5 % (11.5-14.5); Segmented Neutrophils % 74.4 %; White Blood Count 5.3 K/mcL (4.3-11.1)
[2021-04-25 06:02] LABS: Calcium 12.1 mg/dL (8.6-10.3); Potassium 4.4 mEq/L (3.5-5.1)
[2021-04-25] MEDS: *HR* Enoxaparin 40 MG/0.4 ML SYRINGE SQ SCH (06:46)
[2021-04-25] MEDS: Megestrol Acetate 400 MG/10 ML UDC PO SCH (09:28)
[2021-04-25] MEDS: Sucralfate 1 GM TABLET PO SCH ×4 (09:29→23:54)
[2021-04-25] MEDS: clonazePAM 0.5 MG TABLET PO SCH ×2 (09:30→20:39)
[2021-04-25] MEDS: Magnesium Oxide 400 MG TABLET PO SCH ×2 (09:30→20:39)
[2021-04-25] MEDS ORDERED: Nitroglycerin 0.4 MG TAB.SUBL SL PRN (09:30)
[2021-04-25] MEDS: Aspirin Enteric Coated 81 MG Tablet PO SCH (09:30)
[2021-04-25] MEDS: ARIPiprazole 5 MG TABLET PO SCH (20:39)
[2021-04-25] MEDS: Mirtazapine 15 MG TABLET PO SCH (20:39)
[2021-04-26] MEDS: *HR* Enoxaparin 40 MG/0.4 ML SYRINGE SQ SCH (06:39)
[2021-04-26] MEDS: clonazePAM 0.5 MG TABLET PO SCH ×2 (07:40→22:12)
[2021-04-26] MEDS: Megestrol Acetate 400 MG/10 ML UDC PO SCH (07:40)
[2021-04-26] MEDS: Aspirin Enteric Coated 81 MG Tablet PO SCH (07:40)
[2021-04-26] MEDS: Magnesium Oxide 400 MG TABLET PO SCH ×2 (07:40→22:13)
[2021-04-26] MEDS: Sucralfate 1 GM TABLET PO SCH (07:40)
[2021-04-26] MEDS: ARIPiprazole 5 MG TABLET PO SCH (22:12)
[2021-04-26] MEDS: Acetaminophen 325 MG TABLET PO PRN (22:13)
[2021-04-26] MEDS: Mirtazapine 15 MG TABLET PO SCH (22:13)
[2021-04-27] MEDS: *HR* Enoxaparin 30 MG/0.3 ML SYRINGE SQ SCH (05:46)
[2021-04-27] MEDS: clonazePAM 0.5 MG TABLET PO SCH ×2 (08:07→20:27)
[2021-04-27] MEDS: Aspirin Enteric Coated 81 MG Tablet PO SCH (08:07)
[2021-04-27] MEDS: Magnesium Oxide 400 MG TABLET PO SCH ×2 (08:07→20:27)
[2021-04-27] MEDS: Megestrol Acetate 400 MG/10 ML UDC PO SCH (08:07)
[2021-04-27] MEDS: ARIPiprazole 5 MG TABLET PO SCH (20:27)
[2021-04-27] MEDS: Mirtazapine 15 MG TABLET PO SCH (20:27)
[2021-04-28] MEDS: *HR* Enoxaparin 30 MG/0.3 ML SYRINGE SQ SCH (06:19)
[2021-04-28] MEDS: Megestrol Acetate 400 MG/10 ML UDC PO SCH (07:47)
[2021-04-28] MEDS: Aspirin Enteric Coated 81 MG Tablet PO SCH (07:48)
[2021-04-28] MEDS: Magnesium Oxide 400 MG TABLET PO SCH ×2 (07:48→19:47)
[2021-04-28] MEDS: clonazePAM 0.5 MG TABLET PO SCH ×2 (07:48→19:48)
[2021-04-28] MEDS: Mirtazapine 15 MG TABLET PO SCH (19:47)
[2021-04-28] MEDS: Acetaminophen 325 MG TABLET PO PRN (19:48)
[2021-04-28] MEDS: ARIPiprazole 5 MG TABLET PO SCH (19:48)
[2021-04-29] MEDS: *HR* Enoxaparin 30 MG/0.3 ML SYRINGE SQ SCH (06:53)
[2021-04-29] MEDS: Megestrol Acetate 400 MG/10 ML UDC PO SCH (09:04)
[2021-04-29] MEDS: clonazePAM 0.5 MG TABLET PO SCH ×2 (09:05→20:04)
[2021-04-29] MEDS: Aspirin Enteric Coated 81 MG Tablet PO SCH (09:05)
[2021-04-29] MEDS: Magnesium Oxide 400 MG TABLET PO SCH ×2 (09:06→20:04)
[2021-04-29] MEDS: Cyanocobalamin (B-12) 1,000 MCG TABLET PO SCH (09:13)
[2021-04-29] MEDS: Mirtazapine 15 MG TABLET PO SCH (20:04)
[2021-04-29] MEDS: ARIPiprazole 5 MG TABLET PO SCH (20:04)
[2021-04-30] MEDS: *HR* Enoxaparin 30 MG/0.3 ML SYRINGE SQ SCH (06:20)
[2021-04-30] MEDS: Megestrol Acetate 400 MG/10 ML UDC PO SCH (08:34)
[2021-04-30] MEDS: clonazePAM 0.5 MG TABLET PO SCH ×2 (08:35→20:23)
[2021-04-30] MEDS: Aspirin Enteric Coated 81 MG Tablet PO SCH (08:35)
[2021-04-30] MEDS: Magnesium Oxide 400 MG TABLET PO SCH ×2 (08:35→20:23)
[2021-04-30 09:02] LABS: Mean Corpuscular HGB Conc 32.4 g/dL (31.6-35.5); Mean Corpuscular Hemoglobin 29.2 pg (28.0-33.3); Mean Corpuscular Volume 90.2 fL (83.0-100.0); Mean Platelet Volume 10.2 fL (9.4-12.4); Platelet Count 227 K/mcL (140-400); Red Blood Count 3.77 M/mcL (3.82-4.97); Red Cell Distribution Width 13.3 % (11.5-14.5); White Blood Count 4.6 K/mcL (4.3-11.1)
[2021-04-30 09:26] LABS: Calcium 13.2 mg/dL (8.6-10.3); Potassium 3.9 mEq/L (3.5-5.1)
[2021-04-30] MEDS ORDERED: 0.9 % Sodium Chloride 1,000 ML IV ONE (09:30)
[2021-04-30 15:53] LABS: Calcium 13.1 mg/dL (8.6-10.3); Potassium 4.5 mEq/L (3.5-5.1)
[2021-04-30] MEDS: 0.9 % Sodium Chloride 1,000 ML IVC SCH (17:02)
[2021-04-30] MEDS: Acetaminophen 325 MG TABLET PO PRN (18:38)
[2021-04-30] MEDS: Mirtazapine 15 MG TABLET PO SCH (20:23)
[2021-04-30] MEDS: ARIPiprazole 5 MG TABLET PO SCH (20:23)
[2021-05-01] MEDS: 0.9 % Sodium Chloride 1,000 ML IVC SCH ×3 (03:02→20:55)
[2021-05-01] MEDS: *HR* Enoxaparin 30 MG/0.3 ML SYRINGE SQ SCH (05:53)
[2021-05-01 06:40] LABS: Calcium 11.4 mg/dL (8.6-10.3); Potassium 4.5 mEq/L (3.5-5.1)
[2021-05-01] MEDS: clonazePAM 0.5 MG TABLET PO SCH ×2 (09:39→20:17)
[2021-05-01] MEDS: Megestrol Acetate 400 MG/10 ML UDC PO SCH (09:39)
[2021-05-01] MEDS: Aspirin Enteric Coated 81 MG Tablet PO SCH (09:39)
[2021-05-01] MEDS: Magnesium Oxide 400 MG TABLET PO SCH ×2 (09:40→20:17)
[2021-05-01] MEDS: Mirtazapine 15 MG TABLET PO SCH (20:17)
[2021-05-01] MEDS: ARIPiprazole 5 MG TABLET PO SCH (20:17)
[2021-05-02 07:05] LABS: Basophils % 0.5 %; Eosinophils # 0.1 K/mcL (0.0-0.6); Eosinophils % 2.2 %; Hematocrit 26.5 % (35.3-44.9); Hemoglobin 8.5 g/dL (11.5-15.4); Immature Granulocytes % 0.5 % (0-4); Lymphocytes # 0.6 K/mcL (0.6-4.6); Lymphocytes % 15.8 %; Mean Corpuscular HGB Conc 32.1 g/dL (31.6-35.5); Mean Corpuscular Hemoglobin 29.7 pg (28.0-33.3); Mean Corpuscular Volume 92.7 fL (83.0-100.0); Mean Platelet Volume 10.4 fL (9.4-12.4); Monocytes # 0.4 K/mcL (0.0-1.3); Monocytes % 9.9 %; Platelet Count 164 K/mcL (140-400); Red Blood Count 2.86 M/mcL (3.82-4.97); Red Cell Distribution Width 13.4 % (11.5-14.5); Segmented Neutrophils % 71.1 %
[2021-05-02 07:16] LABS: Neutrophils # 2.8 K/mcL (1.6-8.9)
[2021-05-02 07:36] LABS: Calcium 10.6 mg/dL (8.6-10.3); Potassium 4.8 mEq/L (3.5-5.1)
[2021-05-02] MEDS: Megestrol Acetate 400 MG/10 ML UDC PO SCH (07:50)
[2021-05-02] MEDS: *HR* Enoxaparin 30 MG/0.3 ML SYRINGE SQ SCH (07:50)
[2021-05-02] MEDS: 0.9 % Sodium Chloride 1,000 ML IVC SCH (07:50)
[2021-05-02] MEDS: Aspirin Enteric Coated 81 MG Tablet PO SCH (07:51)
[2021-05-02] MEDS: clonazePAM 0.5 MG TABLET PO SCH ×2 (07:51→20:10)
[2021-05-02] MEDS: Magnesium Oxide 400 MG TABLET PO SCH ×2 (07:51→20:10)
[2021-05-02] MEDS ORDERED: 0.9 % Sodium Chloride 1,000 ML IVC SCH (16:00)
[2021-05-02] MEDS: Mirtazapine 15 MG TABLET PO SCH (20:10)
[2021-05-02] MEDS: Acetaminophen 325 MG TABLET PO PRN (20:10)
[2021-05-02] MEDS: ARIPiprazole 5 MG TABLET PO SCH (20:10)
[2021-05-03] MEDS: *HR* Enoxaparin 30 MG/0.3 ML SYRINGE SQ SCH (07:46)
[2021-05-03] MEDS: Megestrol Acetate 400 MG/10 ML UDC PO SCH (07:46)
[2021-05-03] MEDS: Aspirin Enteric Coated 81 MG Tablet PO SCH (07:47)
[2021-05-03] MEDS: Magnesium Oxide 400 MG TABLET PO SCH ×2 (07:47→20:25)
[2021-05-03] MEDS: clonazePAM 0.5 MG TABLET PO SCH ×2 (07:47→20:25)
[2021-05-03 08:15] LABS: Potassium 4.3 mEq/L (3.5-5.1)
[2021-05-03] MEDS ORDERED: 0.9 % Sodium Chloride 1,000 ML IVC SCH (08:30)
[2021-05-03] MEDS: Mirtazapine 15 MG TABLET PO SCH (20:25)
[2021-05-03] MEDS: ARIPiprazole 5 MG TABLET PO SCH (20:25)
[2021-05-04] MEDS: *HR* Enoxaparin 30 MG/0.3 ML SYRINGE SQ SCH (08:02)
[2021-05-04] MEDS: Megestrol Acetate 400 MG/10 ML UDC PO SCH (08:03)
[2021-05-04] MEDS: clonazePAM 0.5 MG TABLET PO SCH ×2 (08:03→21:27)
[2021-05-04] MEDS: Magnesium Oxide 400 MG TABLET PO SCH ×2 (08:03→21:28)
[2021-05-04] MEDS: Aspirin Enteric Coated 81 MG Tablet PO SCH (08:04)
[2021-05-04 15:53] LABS: VBG Ionized Calcium 1.39 mmol/L (1.15-1.35)
[2021-05-04 16:05] LABS: Albumin 3.6 g/dL (3.5-5.7); Calcium 10.6 mg/dL (8.6-10.3); Phosphorous 2.9 mg/dL (2.7-4.5); Potassium 4.8 mEq/L (3.5-5.1)
[2021-05-04] MEDS: ARIPiprazole 5 MG TABLET PO SCH (21:27)
[2021-05-04] MEDS: Mirtazapine 15 MG TABLET PO SCH (21:28)
[2021-05-05] MEDS: Megestrol Acetate 400 MG/10 ML UDC PO SCH (08:12)
[2021-05-05] MEDS: Aspirin Enteric Coated 81 MG Tablet PO SCH (08:13)
[2021-05-05] MEDS: *HR* Enoxaparin 30 MG/0.3 ML SYRINGE SQ SCH (08:13)
[2021-05-05] MEDS: Magnesium Oxide 400 MG TABLET PO SCH ×2 (08:13→20:25)
[2021-05-05] MEDS: clonazePAM 0.5 MG TABLET PO SCH ×2 (08:14→20:25)
[2021-05-05] MEDS: Mirtazapine 15 MG TABLET PO SCH (20:25)
[2021-05-05] MEDS: ARIPiprazole 5 MG TABLET PO SCH (20:25)
[2021-05-05] MEDS: Acetaminophen 325 MG TABLET PO PRN (20:25)
[2021-05-06] MEDS: *HR* Enoxaparin 30 MG/0.3 ML SYRINGE SQ SCH (06:16)
[2021-05-06] MEDS: Megestrol Acetate 400 MG/10 ML UDC PO SCH (08:20)
[2021-05-06] MEDS: Magnesium Oxide 400 MG TABLET PO SCH ×2 (08:20→20:00)
[2021-05-06] MEDS: clonazePAM 0.5 MG TABLET PO SCH ×2 (08:20→20:00)
[2021-05-06] MEDS: Cyanocobalamin (B-12) 1,000 MCG TABLET PO SCH (08:20)
[2021-05-06] MEDS: Aspirin Enteric Coated 81 MG Tablet PO SCH (08:20)
[2021-05-06] MEDS: Simethicone 80 MG TAB.CHEW PO PRN (18:48)
[2021-05-06] MEDS: ARIPiprazole 5 MG TABLET PO SCH (20:00)
[2021-05-06] MEDS: Mirtazapine 15 MG TABLET PO SCH (20:00)
[2021-05-07] MEDS: Acetaminophen 325 MG TABLET PO PRN ×3 (00:25→20:18)
[2021-05-07] MEDS: Simethicone 80 MG TAB.CHEW PO PRN ×3 (00:26→20:18)
[2021-05-07] MEDS: *HR* Enoxaparin 30 MG/0.3 ML SYRINGE SQ SCH (05:29)
[2021-05-07] MEDS: clonazePAM 0.5 MG TABLET PO SCH ×2 (08:41→20:18)
[2021-05-07] MEDS: Aspirin Enteric Coated 81 MG Tablet PO SCH (08:42)
[2021-05-07] MEDS: Megestrol Acetate 400 MG/10 ML UDC PO SCH (08:42)
[2021-05-07] MEDS: Magnesium Oxide 400 MG TABLET PO SCH ×2 (08:42→20:19)
[2021-05-07] MEDS: Mirtazapine 15 MG TABLET PO SCH (20:19)
[2021-05-07] MEDS: ARIPiprazole 5 MG TABLET PO SCH (20:19)
[2021-05-08 07:43] LABS: Basophils % 0.3 %; Eosinophils # 0.1 K/mcL (0.0-0.6); Eosinophils % 1.8 %; Hematocrit 27.9 % (35.3-44.9); Hemoglobin 9.1 g/dL (11.5-15.4); Immature Granulocytes % 0.4 % (0-4); Lymphocytes # 0.8 K/mcL (0.6-4.6); Lymphocytes % 12.5 %; Mean Corpuscular HGB Conc 32.6 g/dL (31.6-35.5); Mean Corpuscular Hemoglobin 29.4 pg (28.0-33.3); Mean Platelet Volume 10.5 fL (9.4-12.4); Monocytes # 0.6 K/mcL (0.0-1.3); Monocytes % 8.9 %; Neutrophils # 5.1 K/mcL (1.6-8.9); Platelet Count 216 K/mcL (140-400); Red Cell Distribution Width 14.1 % (11.5-14.5); Segmented Neutrophils % 76.1 %; White Blood Count 6.7 K/mcL (4.3-11.1)
[2021-05-08 08:05] LABS: Calcium 10.9 mg/dL (8.6-10.3); Potassium 4.8 mEq/L (3.5-5.1)
[2021-05-08] MEDS: clonazePAM 0.5 MG TABLET PO SCH ×2 (10:34→21:37)
[2021-05-08] MEDS: Aspirin Enteric Coated 81 MG Tablet PO SCH (10:35)
[2021-05-08] MEDS: Megestrol Acetate 400 MG/10 ML UDC PO SCH (10:35)
[2021-05-08] MEDS: Magnesium Oxide 400 MG TABLET PO SCH ×2 (10:35→21:36)
[2021-05-08] MEDS: *HR* Enoxaparin 30 MG/0.3 ML SYRINGE SQ SCH (10:36)
[2021-05-08] MEDS: ARIPiprazole 5 MG TABLET PO SCH (21:37)
[2021-05-08] MEDS: Mirtazapine 15 MG TABLET PO SCH (21:37)
[2021-05-09] MEDS: Simethicone 80 MG TAB.CHEW PO PRN ×3 (01:17→21:22)
[2021-05-09] MEDS: Aspirin Enteric Coated 81 MG Tablet PO SCH (07:53)
[2021-05-09] MEDS: Magnesium Oxide 400 MG TABLET PO SCH ×2 (07:53→21:22)
[2021-05-09] MEDS: clonazePAM 0.5 MG TABLET PO SCH ×2 (07:54→21:23)
[2021-05-09] MEDS: Acetaminophen 325 MG TABLET PO PRN (08:07)
[2021-05-09] MEDS ORDERED: Simethicone 80 MG TAB.CHEW PO ONE (15:07)
[2021-05-09] MEDS: ARIPiprazole 5 MG TABLET PO SCH (21:22)
[2021-05-09] MEDS: Mirtazapine 15 MG TABLET PO SCH (21:23)
[2021-05-10] MEDS: clonazePAM 0.5 MG TABLET PO SCH ×2 (08:10→19:51)
[2021-05-10] MEDS: Aspirin Enteric Coated 81 MG Tablet PO SCH (08:10)
[2021-05-10] MEDS: Magnesium Oxide 400 MG TABLET PO SCH ×2 (08:10→19:51)
[2021-05-10] MEDS: Mirtazapine 15 MG TABLET PO SCH (19:51)
[2021-05-10] MEDS: Simethicone 80 MG TAB.CHEW PO PRN (19:51)
[2021-05-10] MEDS: ARIPiprazole 5 MG TABLET PO SCH (19:51)
[2021-05-11 07:48] VITALS: BP 117/67
[2021-05-11] MEDS: Aspirin Enteric Coated 81 MG Tablet PO SCH (08:20)
[2021-05-11] MEDS: clonazePAM 0.5 MG TABLET PO SCH (08:20)
[2021-05-11] MEDS: Magnesium Oxide 400 MG TABLET PO SCH (08:20)
== END 2021-05-11 08:35 | disposition hospice, home (50) | DRG 945 ==
LOC: INPPIK 19:12
PROVIDERS: ADMIT Family Medicine; ATTEND Family Medicine

== ENCOUNTER 2021-07-12 14:42 | Inpatient (IN) ==
[2021-07-12] MEDS ORDERED: 0.9 % Sodium Chloride 1,000 ML IVC ONE (15:17)
[2021-07-12] MEDS ORDERED: Ondansetron 4 MG/2 ML VIAL IVP ONE (15:17)
[2021-07-12 15:47] LABS: Basophils % 0.1 %; Eosinophils # 0.1 K/mcL (0.0-0.6); Eosinophils % 0.4 %; Hematocrit 29.3 % (35.3-44.9); Hemoglobin 9.5 g/dL (11.5-15.4); Immature Granulocytes % 1.9 % (0-4); Lymphocytes # 0.3 K/mcL (0.6-4.6); Lymphocytes % 1.4 %; Mean Corpuscular HGB Conc 32.4 g/dL (31.6-35.5); Mean Corpuscular Hemoglobin 29.1 pg (28.0-33.3); Mean Corpuscular Volume 89.6 fL (83.0-100.0); Mean Platelet Volume 10.9 fL (9.4-12.4); Monocytes # 0.9 K/mcL (0.0-1.3); Monocytes % 4.2 %; Neutrophils # 18.6 K/mcL (1.6-8.9); Nucleated Red Blood Cells 0.2 /100 WBC (0); Platelet Count 339 K/mcL (140-400); Red Blood Count 3.27 M/mcL (3.82-4.97); Red Cell Distribution Width 16.7 % (11.5-14.5); White Blood Count 20.2 K/mcL (4.3-11.1)
[2021-07-12 15:54] LABS: Albumin 3.5 g/dL (3.5-5.7); Albumin/Globulin Ratio 1.4 (1.1-2.2); Bilirubin,Indirect 0.3 mg/dL (0.0-1.0); Bilirubin,Total 0.3 mg/dL (0.3-1.0); Calcium 9.3 mg/dL (8.6-10.3); Globulin 2.5 g/dL (2.4-3.5); Potassium 3.7 mEq/L (3.5-5.1); Prothrombin Time 22.8 Seconds (9.4-12.1)
[2021-07-12 15:55] LABS: Troponin I 0.03 ng/mL (< 0.04)
[2021-07-12 16:20] LABS: Platelet Estimate Normal (Normal)
[2021-07-12 16:38] LABS: Bilirubin,Urine Small (Negative); Blood,Urine Trace-intact (Negative); Clarity,Urine Cloudy (Clear); Color,Urine Yellow (Yellow); Glucose,Urine (UA) Normal (Normal); Ketones,Urine 15 mg/dL (Negative); Leukocyte Esterase,Urine Negative (Negative); Nitrite,Urine Negative (Negative); Protein,Urine 100 mg/dL (Neg-Trace); Specific Gravity,Urine 1.025 (1.010-1.025); Urobilinogen,Urine Normal (Normal)
[2021-07-12 17:02] LABS: Renal Epithelial Cells,Urine Moderate per hpf (None-Few); Transitional Epi Cells,Urine Moderate per hpf (None-Few)
[2021-07-12 17:03] LABS: Amorphous Sediment,Urine Moderate per hpf (None-Few); Bacteria,Urine Many per hpf (None-Few)
[2021-07-12] MEDS ORDERED: Pantoprazole 40 MG VIAL IVP ONE (17:07)
[2021-07-12] MEDS ORDERED: *HR* Metoprolol 5 MG/5 ML VIAL IVP ONE (17:11)
[2021-07-12] MEDS ORDERED: MOM Conc 10 ML UD.LIQ PO PRN (17:35)
[2021-07-12] MEDS ORDERED: Naloxone 0.4 MG/ML INJ IVP PRN (17:35)
[2021-07-12] MEDS ORDERED: Albuterol 2.5 MG/3 ML NEBULIZER IH PRN (17:51)
[2021-07-12] MEDS ORDERED: Dextrose Gel 15 GM/37.5 ML TUBE PO PRN ×2 (18:28)
[2021-07-12] MEDS ORDERED: *HR* Dextrose 50 % in Water (Syg) 50 ML SYRINGE IVP PRN (18:28)
[2021-07-12] MEDS ORDERED: D5% in Water 1,000 ML IVC PRN (18:28)
[2021-07-12] MEDS: Insulin LISPRO 300 UNITS/3 ML VIAL SUBQ SCH (21:38)
[2021-07-12] MEDS: clonazePAM 0.5 MG TABLET PO SCH (22:59)
[2021-07-12] MEDS: Magnesium Oxide 400 MG TABLET PO SCH (22:59)
[2021-07-12] MEDS: Mirtazapine 15 MG TABLET PO SCH (22:59)
[2021-07-12] MEDS: ARIPiprazole 5 MG TABLET PO SCH (23:00)
[2021-07-12] MEDS: Sucralfate 1 GM TABLET PO SCH (23:00)
[2021-07-12] MEDS: 0.9 % Sodium Chloride 1,000 ML IVC SCH (23:00)
[2021-07-12] MEDS: Ondansetron 4 MG/2 ML VIAL IVP PRN (23:00)
[2021-07-13] MEDS: *HR* Heparin 5,000 UNIT/ML VIAL SQ SCH ×2 (05:38→17:04)
[2021-07-13] MEDS: Sucralfate 1 GM TABLET PO SCH ×4 (05:38→21:05)
[2021-07-13] MEDS ORDERED: *HR* Enoxaparin 30 MG/0.3 ML SYRINGE SQ SCH (06:00)
[2021-07-13] MEDS: 0.9 % Sodium Chloride 1,000 ML IVC SCH ×4 (07:46→21:03)
[2021-07-13 07:53] LABS: Basophils % 0.1 %; Hematocrit 22.1 % (35.3-44.9); Immature Granulocytes % 2.7 % (0-4); Lymphocytes # 0.6 K/mcL (0.6-4.6); Lymphocytes % 5.1 %; Mean Corpuscular HGB Conc 31.7 g/dL (31.6-35.5); Mean Corpuscular Hemoglobin 28.9 pg (28.0-33.3); Mean Corpuscular Volume 91.3 fL (83.0-100.0); Monocytes # 0.7 K/mcL (0.0-1.3); Monocytes % 6.5 %; Neutrophils # 9.7 K/mcL (1.6-8.9); Nucleated Red Blood Cells 0.4 /100 WBC (0); Platelet Count 209 K/mcL (140-400); Red Blood Count 2.42 M/mcL (3.82-4.97); Red Cell Distribution Width 16.9 % (11.5-14.5); Segmented Neutrophils % 85.6 %; White Blood Count 11.3 K/mcL (4.3-11.1)
[2021-07-13 08:19] LABS: Calcium 8.1 mg/dL (8.6-10.3); Magnesium 1.2 mg/dL (1.6-2.6)
[2021-07-13] MEDS ORDERED: Cyanocobalamin (B-12) 1,000 MCG TABLET PO SCH (09:00)
[2021-07-13] MEDS: Magnesium Oxide 400 MG TABLET PO SCH ×2 (09:34→21:05)
[2021-07-13] MEDS: Acetaminophen 325 MG TABLET PO PRN ×2 (09:34→17:04)
[2021-07-13] MEDS: Ondansetron 4 MG/2 ML VIAL IVP PRN (09:35)
[2021-07-13] MEDS: clonazePAM 0.5 MG TABLET PO SCH ×2 (09:35→21:06)
[2021-07-13] MEDS: cefTRIAXone 2,000 MG in 0.9 % Sodium Chloride Mini Bag 100 ML IVPB SCH (09:35)
[2021-07-13] MEDS: Insulin LISPRO 300 UNITS/3 ML VIAL SUBQ SCH ×4 (09:48→21:06)
[2021-07-13] MEDS: Mirtazapine 15 MG TABLET PO SCH (21:05)
[2021-07-13] MEDS: ARIPiprazole 5 MG TABLET PO SCH (21:05)
[2021-07-14] MEDS: Sucralfate 1 GM TABLET PO SCH ×4 (06:21→21:49)
[2021-07-14] MEDS: *HR* Heparin 5,000 UNIT/ML VIAL SQ SCH (06:21)
[2021-07-14 07:28] LABS: Basophils % 0.3 %; Eosinophils % 0.3 %; Hematocrit 20.4 % (35.3-44.9); Hemoglobin 6.5 g/dL (11.5-15.4); Immature Granulocytes % 4.9 % (0-4); Lymphocytes # 0.4 K/mcL (0.6-4.6); Lymphocytes % 6.4 %; Mean Corpuscular HGB Conc 31.9 g/dL (31.6-35.5); Mean Corpuscular Hemoglobin 28.9 pg (28.0-33.3); Mean Corpuscular Volume 90.7 fL (83.0-100.0); Mean Platelet Volume 9.5 fL (9.4-12.4); Monocytes # 0.5 K/mcL (0.0-1.3); Monocytes % 7.5 %; Neutrophils # 5.6 K/mcL (1.6-8.9); Nucleated Red Blood Cells 0.6 /100 WBC (0); Platelet Count 188 K/mcL (140-400); Red Blood Count 2.25 M/mcL (3.82-4.97); Red Cell Distribution Width 17.2 % (11.5-14.5); Segmented Neutrophils % 80.6 %; White Blood Count 6.9 K/mcL (4.3-11.1)
[2021-07-14 07:44] LABS: Calcium 7.1 mg/dL (8.6-10.3); Potassium 3.2 mEq/L (3.5-5.1)
[2021-07-14] MEDS: Insulin LISPRO 300 UNITS/3 ML VIAL SUBQ SCH ×4 (08:31→21:50)
[2021-07-14] MEDS ORDERED: 0.9 % Sodium Chloride 250 ML IVC SCH (09:30)
[2021-07-14] MEDS: Magnesium Oxide 400 MG TABLET PO SCH ×2 (10:12→21:49)
[2021-07-14] MEDS: clonazePAM 0.5 MG TABLET PO SCH ×2 (10:13→21:50)
[2021-07-14] MEDS: cefTRIAXone 2,000 MG in 0.9 % Sodium Chloride Mini Bag 100 ML IVPB SCH (10:14)
[2021-07-14] MEDS: Pantoprazole 40 MG VIAL IVP SCH ×3 (10:41→16:05)
[2021-07-14] MEDS: 0.9 % Sodium Chloride 1,000 ML IVC SCH (18:36)
[2021-07-14 19:48] LABS: Hematocrit 24.6 % (35.3-44.9)
[2021-07-14 19:50] LABS: Hemoglobin 8.2 g/dL (11.5-15.4)
[2021-07-14] MEDS: ARIPiprazole 5 MG TABLET PO SCH (21:49)
[2021-07-14] MEDS: Mirtazapine 15 MG TABLET PO SCH (21:49)
[2021-07-14] MEDS: Ondansetron 4 MG/2 ML VIAL IVP PRN (21:59)
[2021-07-15] MEDS: Pantoprazole 40 MG VIAL IVP SCH ×2 (05:48→16:57)
[2021-07-15] MEDS: Sucralfate 1 GM TABLET PO SCH ×4 (05:48→21:42)
[2021-07-15] MEDS: 0.9 % Sodium Chloride 1,000 ML IVC SCH (05:49)
[2021-07-15] MEDS: Insulin LISPRO 300 UNITS/3 ML VIAL SUBQ SCH ×2 (08:02→11:01)
[2021-07-15 08:04] LABS: Basophils % 0.4 %; Eosinophils # 0.1 K/mcL (0.0-0.6); Eosinophils % 2.1 %; Hematocrit 25.9 % (35.3-44.9); Hemoglobin 8.7 g/dL (11.5-15.4); Immature Granulocytes % 4.2 % (0-4); Lymphocytes # 0.5 K/mcL (0.6-4.6); Lymphocytes % 7.6 %; Mean Corpuscular HGB Conc 33.6 g/dL (31.6-35.5); Mean Corpuscular Hemoglobin 29.2 pg (28.0-33.3); Mean Corpuscular Volume 86.9 fL (83.0-100.0); Mean Platelet Volume 9.2 fL (9.4-12.4); Monocytes # 0.5 K/mcL (0.0-1.3); Neutrophils # 5.3 K/mcL (1.6-8.9); Nucleated Red Blood Cells 0.3 /100 WBC (0); Platelet Count 165 K/mcL (140-400); Red Blood Count 2.98 M/mcL (3.82-4.97); Red Cell Distribution Width 15.8 % (11.5-14.5); Segmented Neutrophils % 78.7 %; White Blood Count 6.7 K/mcL (4.3-11.1)
[2021-07-15 08:42] LABS: BUN/Creatinine Ratio 21 (6-26); Blood Urea Nitrogen 17 mg/dL (8-23); Calcium 7.1 mg/dL (8.6-10.3); Carbon Dioxide 24 mEq/L (23-29); Chloride 111 mEq/L (98-107); Glucose 75 mg/dL (70-105); Osmolality,Calculated 292 (280-300); Potassium 3.3 mEq/L (3.5-5.1); Sodium 141 mEq/L (136-145); eGFR For African Americans > 60 (> 60); eGFR For Non-African Americans > 60 (> 60)
[2021-07-15] MEDS: Mag Hydrox/Al Hydrox/Simeth 30 ML UDC PO PRN ×2 (09:27→21:48)
[2021-07-15] MEDS: Magnesium Oxide 400 MG TABLET PO SCH ×2 (09:28→21:42)
[2021-07-15] MEDS: clonazePAM 0.5 MG TABLET PO SCH ×2 (09:29→21:41)
[2021-07-15] MEDS: cefTRIAXone 2,000 MG in 0.9 % Sodium Chloride Mini Bag 100 ML IVPB SCH (09:30)
[2021-07-15] MEDS: ARIPiprazole 5 MG TABLET PO SCH (21:41)
[2021-07-15] MEDS: Mirtazapine 15 MG TABLET PO SCH (21:43)
[2021-07-15 21:48] LABS: Estimated Average Glucose 111 mg/dl; Hemoglobin A1C 5.5 %
[2021-07-16] MEDS: Pantoprazole 40 MG VIAL IVP SCH (05:46)
[2021-07-16] MEDS: clonazePAM 0.5 MG TABLET PO SCH (08:41)
[2021-07-16] MEDS: cefTRIAXone 2,000 MG in 0.9 % Sodium Chloride Mini Bag 100 ML IVPB SCH (08:41)
[2021-07-16] MEDS: Sucralfate 1 GM TABLET PO SCH ×2 (08:42→12:15)
[2021-07-16] MEDS: Magnesium Oxide 400 MG TABLET PO SCH (08:42)
[2021-07-16 10:41] LABS: Hematocrit 27.4 % (35.3-44.9); Mean Corpuscular HGB Conc 32.8 g/dL (31.6-35.5); Mean Corpuscular Hemoglobin 28.8 pg (28.0-33.3); Mean Corpuscular Volume 87.8 fL (83.0-100.0); Mean Platelet Volume 9.5 fL (9.4-12.4); Platelet Count 197 K/mcL (140-400); Red Blood Count 3.12 M/mcL (3.82-4.97); Red Cell Distribution Width 15.7 % (11.5-14.5); White Blood Count 7.7 K/mcL (4.3-11.1)
[2021-07-16 10:58] LABS: BUN/Creatinine Ratio 17 (6-26); Blood Urea Nitrogen 14 mg/dL (8-23); Calcium 8.3 mg/dL (8.6-10.3); Carbon Dioxide 28 mEq/L (23-29); Chloride 107 mEq/L (98-107); Glucose 133 mg/dL (70-105); Osmolality,Calculated 294 (280-300); Potassium 3.6 mEq/L (3.5-5.1); Sodium 141 mEq/L (136-145); eGFR For African Americans > 60 (> 60); eGFR For Non-African Americans > 60 (> 60)
[2021-07-16 18:45] VITALS: BP 113/58; PULSE 97; RESP 15; TEMP 97.9; O2SAT 99
== END 2021-07-16 16:28 | disposition other institution (70) | DRG 872 ==
LOC: EMEROOPIK 14:42 → INPPIK 14:42
PROVIDERS: ADMIT Registered Nurse Emergency; ATTEND Registered Nurse Emergency

== ENCOUNTER 2021-07-16 14:56 | Inpatient (IN) ==
[2021-07-16] MEDS ORDERED: D5% in Water 1,000 ML IVC PRN (15:45)
[2021-07-16] MEDS ORDERED: *HR* Dextrose 50 % in Water (Syg) 50 ML SYRINGE IVP PRN (15:45)
[2021-07-16] MEDS ORDERED: Dextrose Gel 15 GM/37.5 ML TUBE PO PRN ×2 (15:47→15:48)
[2021-07-16] MEDS ORDERED: Mag Hydrox/Al Hydrox/Simeth 30 ML UDC PO PRN (15:49)
[2021-07-16] MEDS ORDERED: MOM Conc 10 ML UD.LIQ PO PRN (15:50)
[2021-07-16] MEDS ORDERED: Naloxone 0.4 MG/ML INJ IVP PRN (15:50)
[2021-07-16] MEDS ORDERED: Ondansetron 4 MG/2 ML VIAL IVP PRN (15:51)
[2021-07-16] MEDS: Sucralfate 1 GM TABLET PO SCH ×2 (17:10→22:56)
[2021-07-16] MEDS: clonazePAM 0.5 MG TABLET PO SCH ×2 (22:37→22:54)
[2021-07-16] MEDS: Magnesium Oxide 400 MG TABLET PO SCH (22:38)
[2021-07-16] MEDS: ARIPiprazole 5 MG TABLET PO SCH (22:54)
[2021-07-16] MEDS: Mirtazapine 15 MG TABLET PO SCH (22:56)
[2021-07-17 05:48] LABS: Basophils % 0.3 %; Eosinophils # 0.2 K/mcL (0.0-0.6); Eosinophils % 2.7 %; Hematocrit 25.8 % (35.3-44.9); Hemoglobin 8.6 g/dL (11.5-15.4); Immature Granulocytes % 3.1 % (0-4); Lymphocytes # 0.9 K/mcL (0.6-4.6); Lymphocytes % 12.4 %; Mean Corpuscular HGB Conc 33.3 g/dL (31.6-35.5); Mean Corpuscular Hemoglobin 29.1 pg (28.0-33.3); Mean Corpuscular Volume 87.2 fL (83.0-100.0); Mean Platelet Volume 9.5 fL (9.4-12.4); Monocytes # 0.5 K/mcL (0.0-1.3); Monocytes % 7.4 %; Neutrophils # 5.4 K/mcL (1.6-8.9); Platelet Count 200 K/mcL (140-400); Red Blood Count 2.96 M/mcL (3.82-4.97); Red Cell Distribution Width 15.5 % (11.5-14.5); Segmented Neutrophils % 74.1 %; White Blood Count 7.3 K/mcL (4.3-11.1)
[2021-07-17 06:19] LABS: BUN/Creatinine Ratio 19 (6-26); Blood Urea Nitrogen 15 mg/dL (8-23); Calcium 8.8 mg/dL (8.6-10.3); Carbon Dioxide 31 mEq/L (23-29); Chloride 103 mEq/L (98-107); Glucose 96 mg/dL (70-105); Osmolality,Calculated 289 (280-300); Potassium 3.9 mEq/L (3.5-5.1); Sodium 139 mEq/L (136-145); eGFR For African Americans > 60 (> 60); eGFR For Non-African Americans > 60 (> 60)
[2021-07-17] MEDS ORDERED: cefTRIAXone 2,000 MG in 0.9 % Sodium Chloride Mini Bag 100 ML IVPB SCH (09:00)
[2021-07-17] MEDS: Acetaminophen 325 MG TABLET PO PRN (09:57)
[2021-07-17] MEDS: Magnesium Oxide 400 MG TABLET PO SCH ×2 (09:58→21:04)
[2021-07-17] MEDS: Sucralfate 1 GM TABLET PO SCH ×4 (09:58→21:02)
[2021-07-17] MEDS: clonazePAM 0.5 MG TABLET PO SCH ×2 (09:58→21:03)
[2021-07-17] MEDS: Mirtazapine 15 MG TABLET PO SCH (21:03)
[2021-07-17] MEDS: ARIPiprazole 5 MG TABLET PO SCH (21:03)
[2021-07-17] MEDS: Famotidine 20 MG TABLET PO SCH (21:04)
[2021-07-18] MEDS: Sucralfate 1 GM TABLET PO SCH ×4 (08:58→20:02)
[2021-07-18] MEDS: Magnesium Oxide 400 MG TABLET PO SCH ×2 (08:58→20:02)
[2021-07-18] MEDS: clonazePAM 0.5 MG TABLET PO SCH ×2 (08:59→20:01)
[2021-07-18] MEDS: Famotidine 20 MG TABLET PO SCH ×2 (09:00→20:03)
[2021-07-18] MEDS ORDERED: levoFLOXacin 750 MG TABLET PO SCH (09:00)
[2021-07-18 09:53] LABS: Hematocrit 28.8 % (35.3-44.9); Hemoglobin 9.2 g/dL (11.5-15.4); Mean Corpuscular HGB Conc 31.9 g/dL (31.6-35.5); Mean Corpuscular Hemoglobin 28.5 pg (28.0-33.3); Mean Corpuscular Volume 89.2 fL (83.0-100.0); Mean Platelet Volume 9.3 fL (9.4-12.4); Platelet Count 229 K/mcL (140-400); Red Blood Count 3.23 M/mcL (3.82-4.97); Red Cell Distribution Width 15.3 % (11.5-14.5); White Blood Count 8.7 K/mcL (4.3-11.1)
[2021-07-18 10:11] LABS: Alanine Aminotransferase 10 Units/L (7-52); Albumin 2.8 g/dL (3.5-5.7); Albumin/Globulin Ratio 1.2 (1.1-2.2); Alkaline Phosphatase 42 Units/L (34-104); Aspartate Amino Transferase 10 Units/L (13-39); BUN/Creatinine Ratio 19 (6-26); Bilirubin,Total 0.2 mg/dL (0.3-1.0); Blood Urea Nitrogen 14 mg/dL (8-23); Calcium 10.1 mg/dL (8.6-10.3); Carbon Dioxide 30 mEq/L (23-29); Chloride 101 mEq/L (98-107); Globulin 2.4 g/dL (2.4-3.5); Glucose 85 mg/dL (70-105); Osmolality,Calculated 284 (280-300); Potassium 4.1 mEq/L (3.5-5.1); Sodium 137 mEq/L (136-145); Total Protein 5.2 g/dL (6.4-8.9); eGFR For African Americans > 60 (> 60); eGFR For Non-African Americans > 60 (> 60)
[2021-07-18] MEDS: ARIPiprazole 5 MG TABLET PO SCH (20:02)
[2021-07-18] MEDS: Mirtazapine 15 MG TABLET PO SCH (20:02)
[2021-07-19] MEDS: clonazePAM 0.5 MG TABLET PO SCH ×2 (09:25→19:39)
[2021-07-19] MEDS: Famotidine 20 MG TABLET PO SCH ×2 (09:25→19:40)
[2021-07-19] MEDS: Sucralfate 1 GM TABLET PO SCH ×4 (09:26→19:43)
[2021-07-19] MEDS: Magnesium Oxide 400 MG TABLET PO SCH ×2 (09:26→19:40)
[2021-07-19] MEDS: Mirtazapine 15 MG TABLET PO SCH (19:38)
[2021-07-19] MEDS: ARIPiprazole 5 MG TABLET PO SCH (19:39)
[2021-07-20] MEDS: Sucralfate 1 GM TABLET PO SCH ×4 (08:41→19:47)
[2021-07-20] MEDS: Magnesium Oxide 400 MG TABLET PO SCH ×2 (08:42→19:43)
[2021-07-20] MEDS: levoFLOXacin 750 MG TABLET PO SCH (08:42)
[2021-07-20] MEDS: clonazePAM 0.5 MG TABLET PO SCH ×2 (08:43→19:42)
[2021-07-20] MEDS: Famotidine 20 MG TABLET PO SCH ×2 (08:44→19:42)
[2021-07-20] MEDS ORDERED: Cyanocobalamin (B-12) 1,000 MCG TABLET PO SCH (09:00)
[2021-07-20] MEDS: Mirtazapine 15 MG TABLET PO SCH (19:43)
[2021-07-20] MEDS: ARIPiprazole 5 MG TABLET PO SCH (19:44)
[2021-07-21] MEDS: Famotidine 20 MG TABLET PO SCH ×2 (08:43→19:39)
[2021-07-21] MEDS: Magnesium Oxide 400 MG TABLET PO SCH ×2 (08:44→19:39)
[2021-07-21] MEDS: Sucralfate 1 GM TABLET PO SCH ×4 (08:44→19:39)
[2021-07-21] MEDS: clonazePAM 0.5 MG TABLET PO SCH ×2 (08:45→19:38)
[2021-07-21] MEDS: Acetaminophen 325 MG TABLET PO PRN (16:37)
[2021-07-21] MEDS: ARIPiprazole 5 MG TABLET PO SCH (19:38)
[2021-07-21] MEDS: Mirtazapine 15 MG TABLET PO SCH (19:38)
[2021-07-22 07:52] LABS: Hematocrit 27.5 % (35.3-44.9); Hemoglobin 8.7 g/dL (11.5-15.4); Mean Corpuscular HGB Conc 31.6 g/dL (31.6-35.5); Mean Corpuscular Hemoglobin 28.4 pg (28.0-33.3); Mean Corpuscular Volume 89.9 fL (83.0-100.0); Mean Platelet Volume 9.3 fL (9.4-12.4); Platelet Count 194 K/mcL (140-400); Red Blood Count 3.06 M/mcL (3.82-4.97); Red Cell Distribution Width 14.6 % (11.5-14.5); White Blood Count 3.5 K/mcL (4.3-11.1)
[2021-07-22] MEDS: levoFLOXacin 750 MG TABLET PO SCH (08:10)
[2021-07-22] MEDS: Famotidine 20 MG TABLET PO SCH (08:10)
[2021-07-22] MEDS: Magnesium Oxide 400 MG TABLET PO SCH ×2 (08:11→20:05)
[2021-07-22] MEDS: clonazePAM 0.5 MG TABLET PO SCH ×2 (08:11→20:05)
[2021-07-22] MEDS: Acetaminophen 325 MG TABLET PO PRN ×2 (08:11→20:04)
[2021-07-22 08:15] LABS: Calcium 11.2 mg/dL (8.6-10.3)
[2021-07-22] MEDS ORDERED: levoFLOXacin 500 MG TABLET PO SCH (10:15)
[2021-07-22] MEDS: Sucralfate 1 GM TABLET PO SCH ×4 (11:56→20:04)
[2021-07-22 19:24] VITALS: TEMP 98.3; O2SAT 99
[2021-07-22] MEDS: ARIPiprazole 5 MG TABLET PO SCH (20:04)
[2021-07-22] MEDS: Mirtazapine 15 MG TABLET PO SCH (20:04)
[2021-07-23 07:37] VITALS: BP 107/63; PULSE 88; RESP 18
[2021-07-23] MEDS: Magnesium Oxide 400 MG TABLET PO SCH (08:05)
[2021-07-23] MEDS: Sucralfate 1 GM TABLET PO SCH ×2 (08:05→11:48)
[2021-07-23] MEDS: clonazePAM 0.5 MG TABLET PO SCH (08:05)
[2021-07-23] MEDS ORDERED: Ondansetron ODT 4 MG TAB.RAPDIS SL PRN (08:54)
[2021-07-23] MEDS ORDERED: Famotidine 20 MG TABLET PO SCH (09:00)
[2021-07-23] MEDS ORDERED: Atropine 1% Opth Drops 100 DROP/5 ML BOTTLE SL PRN (09:04)
[2021-07-24] MEDS ORDERED: levoFLOXacin 500 MG TABLET PO SCH (09:00)
== END 2021-07-23 16:34 | disposition hospice, home (50) | DRG 945 ==
LOC: INPPIK 16:45
PROVIDERS: ADMIT Internal Medicine; ATTEND Internal Medicine